=== PATIENT | female | born 1995 | race Caucasian/White ===

== ENCOUNTER 2018-05-25 10:44 | Inpatient (IN) ==
[2018-05-25] MEDS ORDERED: PROPOFOL ONE (10:48)
[2018-05-25] MEDS ORDERED: Propofol 1000 mg/100 ml Inj 1,000 MG/100 ML BOTTLE ONE (10:50)
[2018-05-25] MEDS ORDERED: Diphtheria/Tetanus/Pertussis Vaccine Inj 0.5 ML Syringe IM ONE (10:52)
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
[2018-05-25] MEDS ORDERED: Post-op Orders (for Pharmacy) OTHER ONE (11:12)
[2018-05-25] MEDS ORDERED: Bisacodyl 10 MG Supp RECTAL PRN (11:12)
[2018-05-25] MEDS ORDERED: Naloxone Inj 0.4 MG/ML Vial IV.PUSH PRN (11:12)
[2018-05-25 11:15] LABS: Baso % (Auto) 0.3 % (0.0-2.0); Eos # (Auto) 0.2 th/mm3 (0.0-0.4); Eos % (Auto) 1.9 % (0.0-4.0); Hematocrit 38.6 % (35.0-46.0); Lymph # (Auto) 3.1 th/mm3 (1.0-4.8); Lymph % (Auto) 36.1 % (9.0-44.0); Mean Corpuscular HGB Conc 33.6 % (32.0-36.0); Mean Corpuscular Hemoglobin 27.2 pg (27.0-34.0); Mean Corpuscular Volume 81.1 fL (80.0-100.0); Mean Platelet Volume 7.3 fL (7.0-11.0); Mono # (Auto) 0.5 th/mm3 (0.0-0.9); Mono % (Auto) 6.3 % (0.0-8.0); Neut # (Auto) 4.7 th/mm3 (1.8-7.7); Neut % (Auto) 55.4 % (16.0-70.0); Platelet Count 268 th/mm3 (150-450); Red Blood Count 4.76 mil/mm3 (4.00-5.30); Red Cell Distribution Width 13.2 % (11.6-17.2); White Blood Count 8.5 th/mm3 (4.0-11.0)
[2018-05-25 11:25] LABS: Activated Partial Thrombo Time 24.7 sec (23.4-31.7); Prothrombin Time 10.2 sec (9.8-11.6)
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
[2018-05-25 13:04] LABS: ABG Base Excess -4.8 mmol/L (-2-2); ABG PCO2 34 mmHg (38-42); ABG PO2 330 mmHg (61-120)
[2018-05-25] MEDS: fentaNYL 10 mcg/mL Premix Drip 2,500 MCG/250 ML BAG IV.SIG PRN (14:00)
[2018-05-25] MEDS: Propofol 1000 mg/100 ml Inj 1,000 MG/100 ML BOTTLE IV.CONT PRN ×3 (14:00→21:30)
[2018-05-25] MEDS: Sod Chloride 0.9% Inj 1,000 ML IV.CONT SCH ×2 (14:00→21:19)
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
[2018-05-25] MEDS: Oral Hygiene Kit OROPHARYNG SCH (15:18)
--- NOTE | 2018-05-25 15:24 | P.CONNS ---
History of Present Illness Service: neurosurgery Consult date: 05/25/18 Requesting Physician: Maira Thomas Reason for Consult: Trauma alert Primary Care Provider: UNKNOWN Chief Complaint: Altered mental status after TBI History of Present Illness: This is a 23 year old female brought as trauma alert with initial GCS of 3, reported on scene. No seizure activity reported. No togue bitting. no incontinence of stool or urine. She was intubated by EMS. On presentation t the trauma bay she had spontaneous movement of her extremities, but not following commands with GCS 7. She appears to have a symmetrical examination. CT of the brain showed a small occipital hemorrhage. Neurosurgery consultation was requested Family history is unobtainable due to her neurological condition Review of Systems unobtainable due to endotracheal tube, unobtainable due to mental condition PMFSH - Medical / Surgical Hx Neg / Unobtainable Medical Problems Denied: Unable to Obtain - Medical History Medical History: Medical History (Last Reviewed 05/28/18 @ 16:47 by Adin Connolly MD) Hypothyroidism Medications and Allergies Active Medications: Active Medications Al Hydroxide/Mg Hydroxide (Milk Of [employer] Liq) 30 ml PO Q12H PRN PRN Reason: Mild Constipation Albuterol (Duoneb Neb (Prn)) 1 ampul NEB Q2HR NEB PRN PRN Reason: SHORTNESS OF BREATH Albuterol (Duoneb Neb (Eliud)) 1 ampul NEB Q4HR NEB ELIUD Bisacodyl (Dulcolax Supp) 10 mg RECTAL DAILY PRN PRN Reason: SEVERE CONSITIPATION Chlorhexidine Gluconate (Peridex 0.12% Oral Kit) 15 ml OROPHARYNG BID@0800, 2000 ELIUD Sodium Chloride (Ns Inj) 1,000 mls @ 100 mls/hr IV.CONT .Q10H ELIUD Last Admin: 05/25/18 14:00 Dose: 100 mls/hr Propofol (Diprivan 1000 Mg/100 Ml Inj) 1,000 mg in 100 mls @ 2.421 mls/hr IV.CONT TITRATE PRN; Protocol PRN Reason: Per Protocol Last Admin: 05/25/18 14:00 Dose: 30 mcg/kg/min, 14.53 mls/hr Fentanyl (Fentanyl 10 Mcg/Ml Premix Drip) 2,500 mcg in 250 mls @ 5 mls/hr IV.SIG TITRATE PRN; Protocol PRN Reason: Per Protocol Last Admin: 05/25/18 14:00 Dose: 150 mcg/hr, 15 mls/hr Lactulose (Lactulose Liq) 30 ml PO DAILY PRN PRN Reason: SEVERE CONSITIPATION Miscellaneous Medication () 1 each OROPHARYNG 0000,0400,1200,1600 ELIUD Last Admin: 05/25/18 15:18 Dose: 1 each Naloxone HCl (Narcan Inj) 0.4 mg IV.PUSH UNSCH PRN PRN Reason: SEE LABEL COMMENTS Ondansetron HCl (Zofran Inj) 4 mg IV.PUSH Q6H PRN PRN Reason: NAUSEA OR VOMITING Pantoprazole Sodium (Protonix Inj) 40 mg IV.PUSH Q24H ELIUD Senna/Docusate Sodium (Taylor-Colace) 1 tab PO BID ELIUD Sennosides (Senokot) 17.2 mg PO Q12H PRN PRN Reason: Moderate Constipation Allergies Allergy/AdvReac Type Severity Reaction Status Date / Time No Known Allergies Allergy Verified 05/25/18 16:21 Home Medications Medication Instructions Recorded Confirmed Type drospirenone-ethinyl estradiol 1 tab PO DAILY 05/25/18 05/25/18 History [Bonyvi (28)] levothyroxine [Synthroid] 112 mcg PO DAILY 05/25/18 05/25/18 History Exam Vital signs: Vital Signs 05/25/18 11:32 05/25/18 11:50 Respiratory Rate 14 Pulse Oximetry 100 100 Intake & Output 05/24/18 05/25/18 05/25/18 18:59 06:59 18:59 Weight 80.7 kg Other: Weight On Admission 80.7 kg Narrative: The patient is intubated and sedated. Localizes to painful stimuli with all 4 extremities. GCS 7 Cranial Nerves: Pupils equal, 3 mm round, reactive to light. Eyes appear conjugated. There was no nystagmus, no papilledema. Face musculature appeared symmetrical at rest. Face sensation, olfaction, and hearing cannot be adequately assessed due to the patient's neurological condition. The patient has a corneal reflex. The patient has a gag reflex. The sternocleidomastoid and trapezius were symmetrical. Cervical Spine: The patient's neck is soft, supple, without nuchal rigidity. Motor: She moves purposefully all 4 extremities, left upper extremity splinted. Full examination limited due to her orthopedic injuries Reflexes: Deep tendon reflexes are 2 in the right biceps, triceps, and brachioradialis in the upper extremities. In the lower extremities, the patellar and ankles are 2+, bilaterally. There is a bilateral plantar flexion response. There is no clonus Sensory: On examination there there is response to painful stimuli, localizing with both upper and lower extremities. Cerebellar: Examination cannot be adequately assessed due to the patient's neurological condition. Lungs: clear Heart: Regular rhythm and rate Skin: warm and dry Results - Laboratory Findings CBC and BMP: 05/28/18 03:37 05/28/18 03:37 Abnormal lab findings: Abnormal Labs 05/25/18 05/25/18 10:50 12:47 ABG pH 7.37 L ABG pCO2 34 L ABG pO2 330 H ABG HCO3 20 L ABG Base Excess -4.8 L POC Glucose 133 H Assessment and Plan - Plan I have reviewed the clinical and radiological findings Chest X-Ray 05/25/18 10:45 CONCLUSION: No acute abnormality is seen. The ET tube is in good position. Pelvis X-Ray 05/25/18 10:45 CONCLUSION: Negative AP pelvis. Abdomen/Pelvis CT 05/25/18 10:49 CONCLUSION: No acute injury is identified within the abdomen or pelvis. Cervical Spine CT 05/25/18 10:49 CONCLUSION: Negative cervical spine CT examination. Chest CT 05/25/18 10:49 CONCLUSION: 1. No acute injury is identified within the chest. 2. Please refer to abdomen and pelvis CT report for description of the subdiaphragmatic findings. Head CT 05/25/18 10:49 CONCLUSION: Small 0.3 cm hyperdense focus seen in the left occipital region which could potentially represent small focal hemorrhage. No other possible areas of hemorrhage are seen. . Humerus X-Ray 05/25/18 10:49 CONCLUSION: Mid left humeral shaft fracture. Neuro: TBI, GCS 7. Although she has a very small hemorrhage without mass effect , she does not follow commands, and her neurological examination warrants placement of ICP monitor. Neuro checks in a serial fashion. She will be managed according to the recommendations of the [place] [employer]. Placement of ICP monitor is indicated. I discussed with her mother the step by step details, indcations, alternatives, potential complications Pulmonary: aggressive pulmonary toilette, nasotracheal suction, and breathing treatments with nebulizers. Upper extremity fracture. Will go to the OR for ORIF Daily PT and OT Renal: Continue to monitor closely urine output, BUN and creatinine Endocrine: Continue to Monitor serial Acu checks and SSI as needed in detail ID continue to monitor for signs of infection Continue Protonix for stress ulcer prophylaxis Continue Darion hose and SCD's for DVT prophylaxis Further recommendations will be provided depending on the patient's clinical evaluation and follow up studies. Discussed with dr House and Dr Meyer
--- NOTE | 2018-05-25 15:28 | P.OP ---
Preoperative Diagnosis: Severe traumatic brain injury Postoperative Diagnosis: Severe traumatic brain injury Date of procedure: 06/14/18 Procedure: Right frontal bur hole with placement of an intracranial pressure monitor. Anesthesia: local Surgeon: Adin Connolly MD Human Resources Executive: KHUSHI Pathology: none sent Operation and Findings: INDICATIONS FOR THE PROCEDURE The patient is an adult female who was brought to [facility] as a trauma alert with a severe traumatic brain injury She had a GCS of 3. CT of the brain showed an area of intracranial hemorrhage. Placement of ICP monitor was indicated as recommended by the Tra[employer] of [place] [employer] DETAILS OF THE SURGICAL PROCEDURE The right frontal area was shaved, prepped and draped in the usual sterile fashion. An entry point was selected behind the hairline, approximately 30 mm lateral to the midline. The incision was infiltrated with 1% lidocaine with epinephrine 1:100,000 dilution. A small incision was made with a 15 blade down to the level of the periosteum. Using a twist drill a antoni hole was made. The dura was opened with a blunt stylet, and a Lisa bolt was secured to the bone. A fiberoptic transducer was calibrated according to the information security engineer's instructions, and advanced into the parenchyma of the frontal lobe through the bolt. An intracranial pressure of 5 mmHg was achieved with a good waveform. A Betadine sterile dressing was applied. The patient tolerated the procedure well. There were no intraoperative complications. Blood loss was minimal.
[2018-05-25] MEDS: Pantoprazole Inj 40 MG Vial IV.PUSH SCH (15:37)
[2018-05-25] MEDS: Chlorhexidine 0.12% Oral Kit 15 ML UDC OROPHARYNG SCH (19:53)
[2018-05-25] MEDS: Senna/Docusate Sodium 8.6/50 MG Tablet PO SCH (20:30)
[2018-05-26] MEDS: fentaNYL 10 mcg/mL Premix Drip 2,500 MCG/250 ML BAG IV.SIG PRN ×2 (01:50→19:50)
[2018-05-26] MEDS: Propofol 1000 mg/100 ml Inj 1,000 MG/100 ML BOTTLE IV.CONT PRN ×4 (02:58→19:47)
[2018-05-26] MEDS: Oral Hygiene Kit OROPHARYNG SCH ×4 (03:55→16:16)
--- NOTE | 2018-05-26 04:17 | XR ---
EXAM DATE: 05/26/2018 4:10 AM EST AGE/SEX: 23 years / Female INDICATIONS: Follow up trauma alert. CLINICAL DATA: This is the patient's subsequent encounter. Patient reports that signs and symptoms h ave been present for 2 days and indicates a pain score of Nonresponsive. MEDICAL/SURGICAL HISTORY: Non-responsive. Non-responsive. COMPARISON: C, CHEST 1V SINGLE AP, 05/25/2018. . FINDINGS: Endotracheal tube tip at the inferior margin the clavicles. Enteric tube courses beneath the diaphrag m. The lungs are clear. The osseous structures are intact. CONCLUSION: Negative examination. Electronically signed by: George Goncalves MD 05/26/2018 4:15 AM EST
[2018-05-26 06:06] LABS: ABG Base Excess -2.7 mmol/L (-2-2); ABG PCO2 30 mmHg (38-42); ABG PO2 205 mmHg (61-120)
[2018-05-26] MEDS ORDERED: Sod Chloride 0.9% Inj 1,000 ML IV.SIG ONE ×2 (06:30→13:04)
[2018-05-26 08:36] LABS: Baso % (Auto) 0.2 % (0.0-2.0); Eos % (Auto) 0.2 % (0.0-4.0); Hematocrit 28.9 % (35.0-46.0); Hemoglobin 10.1 gm/dL (11.6-15.3); Lymph # (Auto) 1.4 th/mm3 (1.0-4.8); Mean Corpuscular Hemoglobin 27.7 pg (27.0-34.0); Mean Platelet Volume 7.8 fL (7.0-11.0); Mono # (Auto) 0.7 th/mm3 (0.0-0.9); Mono % (Auto) 6.4 % (0.0-8.0); Neut # (Auto) 9.1 th/mm3 (1.8-7.7); Neut % (Auto) 81.2 % (16.0-70.0); Platelet Count 195 th/mm3 (150-450); Red Blood Count 3.66 mil/mm3 (4.00-5.30); Red Cell Distribution Width 13.2 % (11.6-17.2); White Blood Count 11.3 th/mm3 (4.0-11.0)
[2018-05-26] MEDS: Senna/Docusate Sodium 8.6/50 MG Tablet PO SCH ×2 (08:52→22:21)
[2018-05-26] MEDS: Chlorhexidine 0.12% Oral Kit 15 ML UDC OROPHARYNG SCH ×2 (08:52→21:43)
[2018-05-26] MEDS: Sod Chloride 0.9% Inj 1,000 ML IV.CONT SCH ×2 (08:52→20:05)
[2018-05-26] MEDS: Levothyroxine 112 MCG Tablet PO SCH (08:52)
[2018-05-26 09:12] LABS: Anion Gap 9 meq/L (5-15); Blood Urea Nitrogen 6 mg/dL (7-18); Calcium 7.3 mg/dL (8.5-10.1); Carbon Dioxide 21.1 meq/L (21.0-32.0); Chloride 113 meq/L (98-107); Glomerular Filtration Rate Greater Than 89 mL/min (>89); Glucose,Random 110 mg/dL (74-106); Sodium 143 meq/L (136-145)
[2018-05-26 09:20] LABS: Albumin 2.6 g/dL (3.4-5.0); Calcium-Albumin Corrected 8.4 mg/dL (8.5-10.1)
[2018-05-26] MEDS ORDERED: Magnesium Sulfate Inj 2 GM in Sodium Chlor 0.9% Inj 96 ML IV.SIG PRN (09:22)
[2018-05-26] MEDS ORDERED: Magnesium Oxide 400 MG Tablet PO PRN (09:22)
[2018-05-26] MEDS ORDERED: Magnesium Sulfate Inj 4 GM in Sodium Chlor 0.9% Inj 92 ML IV.SIG PRN (09:22)
[2018-05-26] MEDS ORDERED: Sodium Phosphate Inj 30 MMOL in Sodium Chlor 0.9% Inj 250 ML IV.SIG PRN (09:22)
[2018-05-26] MEDS ORDERED: Potassium Phosphate Inj 30 MMOL in Sodium Chlor 0.9% Inj 250 ML IV.SIG PRN (09:22)
[2018-05-26] MEDS ORDERED: Potassium Phosphate 500 MG Soluble Tablet PO PRN ×2 (09:22)
[2018-05-26] MEDS ORDERED: Potassium Chloride 25 MEQ Effervescent Tablet PO PRN (09:22)
[2018-05-26] MEDS ORDERED: Potassium Chlor 40 mEq Premix 40 MEQ/100 ML PIGGYBACK IV.SIG PRN ×2 (09:22)
--- NOTE | 2018-05-26 10:17 | XR ---
EXAM DATE: 05/26/2018 10:07 AM EST AGE/SEX: 23 years / Female INDICATIONS: Trauma. Left hand swollen and abrasion to posterior hand between 1st and 2nd metacarpa ls. CLINICAL DATA: This is the patient's initial encounter. Patient reports that signs and symptoms have been present for 2 days and indicates a pain score of Nonresponsive. MEDICAL/SURGICAL HISTORY: Non-responsive. Non-responsive. COMPARISON: No prior exams available for comparison. FINDINGS: Bony structures are intact and in normal alignment. Osseous density is normal. Soft tissues are unre markable. No radiopaque foreign bodies seen. CONCLUSION: Generalized soft tissue swelling, negative for displaced fracture Electronically signed by: Wally Reis MD 05/26/2018 10:16 AM EST
--- NOTE | 2018-05-26 11:29 | P.PNNS ---
Subjective Interval history: ICPs stable overnight, intubated and well sedated Physical Exam Vital signs: Vital Signs 05/25/18 11:32 05/25/18 11:35 05/25/18 11:50 Temperature Pulse Rate 79 Respiratory Rate 14 14 Blood Pressure Pulse Oximetry 100 100 100 05/25/18 12:00 05/25/18 12:22 05/25/18 12:30 Temperature 97.0 F L 97.3 F L Pulse Rate 99 H 82 73 Respiratory Rate 14 14 16 Blood Pressure 145/70 H 165/63 H Pulse Oximetry 99 100 100 05/25/18 12:40 05/25/18 12:45 05/25/18 12:49 Temperature 94.3 F L 97.5 F L Pulse Rate 76 67 67 Respiratory Rate 19 15 14 Blood Pressure 157/56 H 113/56 L 113/58 L Pulse Oximetry 98 100 100 05/25/18 12:54 05/25/18 12:59 05/25/18 13:00 Temperature 97.9 F 97.9 F 97.9 F Pulse Rate 66 69 68 Respiratory Rate 15 14 14 Blood Pressure 112/56 L 102/52 L Pulse Oximetry 100 100 100 05/25/18 13:02 05/25/18 13:18 05/25/18 13:33 Temperature 97.9 F 97.9 F 97.7 F Pulse Rate 69 72 73 Respiratory Rate 14 14 14 Blood Pressure 113/54 L 105/53 L 102/50 L Pulse Oximetry 100 100 100 05/25/18 13:48 05/25/18 14:00 05/25/18 14:03 Temperature 97.9 F 98.1 F 98.1 F Pulse Rate 72 81 81 Respiratory Rate 14 14 14 Blood Pressure 103/54 L 99/50 L Pulse Oximetry 100 100 100 05/25/18 14:18 05/25/18 14:33 05/25/18 14:48 Temperature 98.1 F 97.9 F 97.7 F Pulse Rate 80 78 67 Respiratory Rate 14 14 14 Blood Pressure 93/48 L 91/51 L 98/53 L Pulse Oximetry 100 100 100 05/25/18 15:00 05/25/18 15:03 05/25/18 15:18 Temperature 97.9 F 97.9 F 98.1 F Pulse Rate 72 71 70 Respiratory Rate 14 14 14 Blood Pressure 100/55 L 99/55 L Pulse Oximetry 100 100 100 05/25/18 15:33 05/25/18 15:34 05/25/18 15:48 Temperature 98.1 F 98.1 F Pulse Rate 66 77 74 Respiratory Rate 14 14 14 Blood Pressure 111/58 L 107/58 L Pulse Oximetry 100 100 100 05/25/18 16:00 05/25/18 16:03 05/25/18 16:18 Temperature 98.2 F 98.2 F 98.2 F Pulse Rate 73 73 71 Respiratory Rate 14 14 14 Blood Pressure 108/57 L 109/57 L Pulse Oximetry 100 100 100 05/25/18 16:33 05/25/18 16:48 05/25/18 17:00 Temperature 98.4 F 98.2 F 98.2 F Pulse Rate 71 67 69 Respiratory Rate 14 14 14 Blood Pressure 109/55 L 113/56 L Pulse Oximetry 100 100 100 05/25/18 17:03 05/25/18 17:18 05/25/18 17:33 Temperature 98.2 F 98.4 F 98.4 F Pulse Rate 69 70 71 Respiratory Rate 14 14 14 Blood Pressure 108/55 L 107/56 L 108/56 L Pulse Oximetry 100 100 100 05/25/18 17:48 05/25/18 18:00 05/25/18 18:03 Temperature 98.4 F 98.6 F 98.6 F Pulse Rate 73 72 74 Respiratory Rate 14 14 14 Blood Pressure 106/53 L 109/54 L Pulse Oximetry 100 100 100 05/25/18 18:18 05/25/18 18:33 05/25/18 18:48 Temperature Pulse Rate 73 73 72 Respiratory Rate 14 14 14 Blood Pressure 104/56 L 109/55 L Pulse Oximetry 100 100 100 05/25/18 19:00 05/25/18 19:03 05/25/18 19:18 Temperature Pulse Rate 74 74 74 Respiratory Rate 14 14 14 Blood Pressure 103/55 L 104/57 L Pulse Oximetry 100 100 100 05/25/18 19:33 05/25/18 19:41 05/25/18 19:48 Temperature Pulse Rate 73 73 74 Respiratory Rate 14 14 14 Blood Pressure 114/56 L 117/55 L Pulse Oximetry 100 100 100 05/25/18 20:00 05/25/18 20:03 05/25/18 20:18 Temperature 97.6 F Pulse Rate 85 88 87 Respiratory Rate 23 23 23 Blood Pressure 110/59 L 109/56 L Pulse Oximetry 100 100 100 05/25/18 20:33 05/25/18 20:48 05/25/18 21:00 Temperature Pulse Rate 83 85 85 Respiratory Rate 14 14 14 Blood Pressure 107/52 L 109/53 L 109/55 L Pulse Oximetry 100 100 100 05/25/18 21:03 05/25/18 21:18 05/25/18 21:33 Temperature Pulse Rate 85 85 83 Respiratory Rate 14 14 14 Blood Pressure 109/55 L 109/56 L 108/53 L Pulse Oximetry 100 100 100 05/25/18 21:48 05/25/18 22:00 05/25/18 22:03 Temperature Pulse Rate 82 82 84 Respiratory Rate 14 14 14 Blood Pressure 108/52 L 110/53 L Pulse Oximetry 100 100 100 05/25/18 22:18 05/25/18 22:33 05/25/18 22:48 Temperature Pulse Rate 87 85 86 Respiratory Rate 15 14 14 Blood Pressure 110/53 L 113/55 L 104/53 L Pulse Oximetry 100 100 100 05/25/18 23:00 05/25/18 23:03 05/25/18 23:18 Temperature Pulse Rate 85 85 85 Respiratory Rate 14 14 14 Blood Pressure 107/52 L 108/52 L Pulse Oximetry 100 100 100 05/25/18 23:24 18 23:33 05/25/18 23:48 Temperature Pulse Rate 82 95 H 93 H Respiratory Rate 14 14 14 Blood Pressure 106/54 L 106/54 L Pulse Oximetry 100 100 100 05/26/18 00:00 05/26/18 00:03 05/26/18 00:18 Temperature 99.9 F H Pulse Rate 92 H 91 H 84 Respiratory Rate 14 14 14 Blood Pressure 105/53 L 105/53 L Pulse Oximetry 100 100 100 05/26/18 00:33 05/26/18 00:48 05/26/18 01:00 Temperature Pulse Rate 89 89 88 Respiratory Rate 14 14 14 Blood Pressure 102/52 L 94/53 L Pulse Oximetry 100 100 100 05/26/18 01:03 05/26/18 01:18 05/26/18 01:33 Temperature Pulse Rate 90 89 87 Respiratory Rate 14 14 14 Blood Pressure 98/53 L 99/53 L 99/53 L Pulse Oximetry 100 100 100 05/26/18 01:48 05/26/18 02:00 05/26/18 02:03 Temperature Pulse Rate 85 85 85 Respiratory Rate 14 14 14 Blood Pressure 100/54 L 109/59 L Pulse Oximetry 100 100 100 05/26/18 02:18 05/26/18 02:33 05/26/18 02:48 Temperature Pulse Rate 85 84 83 Respiratory Rate 14 14 14 Blood Pressure 103/53 L 98/50 L 99/51 L Pulse Oximetry 100 100 100 05/26/18 02:54 05/26/18 03:00 05/26/18 03:03 Temperature Pulse Rate 84 83 83 Respiratory Rate 14 14 14 Blood Pressure 98/54 L 99/52 L 101/59 L Pulse Oximetry 100 100 100 05/26/18 03:18 05/26/18 03:24 05/26/18 03:33 Temperature Pulse Rate 82 84 90 Respiratory Rate 14 14 14 Blood Pressure 99/52 L 110/63 Pulse Oximetry 100 100 100 05/26/18 03:48 05/26/18 04:00 05/26/18 04:03 Temperature 99.1 F Pulse Rate 97 H 98 H 97 H Respiratory Rate 14 14 14 Blood Pressure 117/61 118/59 L Pulse Oximetry 100 100 100 05/26/18 04:18 05/26/18 04:33 05/26/18 04:48 Temperature Pulse Rate 96 H 93 H 91 H Respiratory Rate 14 14 14 Blood Pressure 113/58 L 112/55 L 110/50 L Pulse Oximetry 100 100 100 05/26/18 05:00 05/26/18 05:03 05/26/18 05:18 Temperature 99.1 F 99.0 F Pulse Rate 91 H 90 92 H Respiratory Rate 14 14 14 Blood Pressure 106/55 L 106/52 L Pulse Oximetry 100 100 100 05/26/18 05:33 05/26/18 05:51 05/26/18 06:00 Temperature Pulse Rate 89 85 84 Respiratory Rate 14 14 14 Blood Pressure 101/50 L 99/54 L Pulse Oximetry 100 100 100 05/26/18 06:18 05/26/18 06:19 05/26/18 06:30 Temperature 97.7 F 97.7 F Pulse Rate 83 81 Respiratory Rate 12 12 12 Blood Pressure 100/55 L 100/55 L Pulse Oximetry 100 100 100 05/26/18 06:48 05/26/18 07:00 05/26/18 07:15 Temperature 97.5 F L 97.5 F L 97.5 F L Pulse Rate 81 80 80 Respiratory Rate 12 12 12 Blood Pressure 100/55 L 99/53 L 94/53 L Pulse Oximetry 100 100 100 05/26/18 07:26 05/26/18 07:30 05/26/18 07:45 Temperature 95.5 F L 93.4 F L Pulse Rate 75 81 87 Respiratory Rate 12 12 12 Blood Pressure 99/54 L 99/51 L Pulse Oximetry 100 100 100 05/26/18 08:00 05/26/18 08:15 05/26/18 09:00 Temperature 98.3 F 98.8 F Pulse Rate 90 84 88 Respiratory Rate 10 L 20 Blood Pressure 106/56 L 108/51 L Pulse Oximetry 100 100 05/26/18 09:56 05/26/18 10:30 05/26/18 11:09 Temperature 99.1 F Pulse Rate 88 94 H Respiratory Rate 12 12 12 Blood Pressure 108/54 L Pulse Oximetry 100 100 Intake & Output 05/25/18 05/26/18 05/26/18 18:59 06:59 18:59 Intake Total 200 / 200 1550 / 1550 1000 / 1000 Output Total 425 / 425 400 / 400 Balance -225 / -225 1150 / 1150 1000 / 1000 Weight 80.7 kg 85.5 kg Intake: IV 200 / 200 1550 / 1550 1000 / 1000 Diprivan 1000 mg/100 ml Inj 1, 100 / 100 000 mg In 100 ml @ 0 mls/hr . ROUTE .STK-MED ONE Rx#:[id number] Diprivan 1000 mg/100 ml Inj 1, 100 / 100 300 / 300 000 mg In 100 ml @ 5 MCG/KG/MIN 2.421 mls/hr IV.CONT TITRATE PRN Rx#:[id number] NS Inj 1,000 ML @ 100 mls/hr IV 1000 / 1000 1000 / 1000 .CONT .Q10H KELSEY Rx#:[id number] fentaNYL 10 mcg/mL Premix Drip 250 / 250 2,500 mcg In 250 ml @ 50 MCG/HR 5 mls/hr IV.SIG TITRATE PRN Rx #:[id number] Oral 0 / 0 Output: Urine Amount (Catheter) 225 / 225 300 / 300 Indwelling Temp Sensing 225 / 225 300 / 300 Catheter Gastric Drainage 200 / 200 100 / 100 Orogastric Tube 200 / 200 100 / 100 Other: Weight On Admission 80.7 kg Narrative: intubated, sedated bolt monitor in place, ICPs = 4 pupils equal no response to ext to pain - Urinary Catheter Management Indwelling Temp Sensing Catheter Cath placed during this visit: yes Reason for continuing: Hourly intake/output Insertion date: 05/25/18 Insertion time: 14:00 Assessment and Plan - Plan 23 y/o female TBI, s/p placement of ICP monitor 05/25/[address] 05/25/18 10:49 CONCLUSION: Small 0.3 cm hyperdense focus seen in the left occipital region which could potentially represent small focal hemorrhage. No other possible areas of hemorrhage are seen. Plan: cont ICP monitoring cont critical care per trauma neuro checks
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
[2018-05-26] MEDS: Potassium Chlor 20 mEq Premix 20 MEQ/100 ML PIGGYBACK IV.SIG PRN ×4 (12:31→21:56)
[2018-05-26] MEDS: Pantoprazole Inj 40 MG Vial IV.PUSH SCH (12:41)
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
[2018-05-27] MEDS: Oral Hygiene Kit OROPHARYNG SCH ×4 (00:05→17:12)
[2018-05-27] MEDS: Propofol 1000 mg/100 ml Inj 1,000 MG/100 ML BOTTLE IV.CONT PRN ×3 (01:58→20:15)
[2018-05-27 04:36] LABS: Hematocrit 29.8 % (35.0-46.0); Hemoglobin 9.7 gm/dL (11.6-15.3); Mean Corpuscular HGB Conc 32.4 % (32.0-36.0); Mean Corpuscular Hemoglobin 26.7 pg (27.0-34.0); Mean Corpuscular Volume 82.3 fL (80.0-100.0); Mean Platelet Volume 7.6 fL (7.0-11.0); Platelet Count 168 th/mm3 (150-450); Red Blood Count 3.62 mil/mm3 (4.00-5.30); Red Cell Distribution Width 13.1 % (11.6-17.2); White Blood Count 18.4 th/mm3 (4.0-11.0)
[2018-05-27 05:05] LABS: Anion Gap 10 meq/L (5-15); Blood Urea Nitrogen 2 mg/dL (7-18); Calcium 7.6 mg/dL (8.5-10.1); Carbon Dioxide 18.7 meq/L (21.0-32.0); Chloride 112 meq/L (98-107); Glomerular Filtration Rate Greater Than 89 mL/min (>89); Glucose,Random 121 mg/dL (74-106); Potassium 4.1 meq/L (3.5-5.1); Sodium 141 meq/L (136-145)
[2018-05-27 05:19] LABS: Lymphocytes 5 % (9-44); Metamyelocytes 1 % (0-1); Monocytes 2 % (0-8); Platelet Estimate Normal (Normal); Platelet Morphology Normal (Normal); RBC Morphology Normal (Normal)
[2018-05-27] MEDS: Levothyroxine 112 MCG Tablet PO SCH (06:02)
[2018-05-27] MEDS ORDERED: Sod Chloride 0.9% Inj 1,000 ML IV.SIG ONE (09:17)
--- NOTE | 2018-05-27 09:38 | XR ---
EXAM DATE: 05/27/2018 9:34 AM EST AGE/SEX: 23 years / Female INDICATIONS: Fever. CLINICAL DATA: This is the patient's subsequent encounter. Patient reports that signs and symptoms h ave been present for 3 days and indicates a pain score of Nonresponsive. MEDICAL/SURGICAL HISTORY: None. None. [place] [facility] [place]. . FINDINGS: Decreased aeration of the lungs is noted. There is increasing opacity in the perihilar regions. There is no evidence of peripheral airspace disease or effusions. Endotracheal and nasogastric tubes remain in good position. CONCLUSION: Decreased lung aeration with perihilar opacity No evidence of peripheral airspace disease. Electronically signed by: Loi Colon MD 05/27/2018 9:36 AM EST
[2018-05-27 10:02] LABS: ABG Base Excess -4.1 mmol/L (-2-2); ABG PCO2 33 mmHg (38-42); ABG PO2 89 mmHg (61-120)
[2018-05-27] MEDS: Sod Chloride 0.9% Inj 1,000 ML IV.CONT SCH ×2 (11:01→15:20)
[2018-05-27] MEDS: Senna/Docusate Sodium 8.6/50 MG Tablet PO SCH ×2 (11:02→20:40)
[2018-05-27] MEDS: Chlorhexidine 0.12% Oral Kit 15 ML UDC OROPHARYNG SCH ×2 (11:02→20:42)
[2018-05-27] MEDS ORDERED: Vancomycin Consult Pharmacy OTHER PRN (11:41)
[2018-05-27] MEDS ORDERED: Vancomycin Inj 1,000 MG in Sodium Chlor 0.9% Inj 250 ML IV.SIG ONE (11:42)
[2018-05-27] MEDS: Pantoprazole Inj 40 MG Vial IV.PUSH SCH (11:53)
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
--- NOTE | 2018-05-27 13:16 | P.PNOP ---
Subjective Interval history: Patient intubated. Mother states she was cleared for surgery yesterday, but it did not happen, reason unknown. Currently patient is unstable for surgery at this time. Physical Exam Vital signs: Vital Signs 05/26/18 13:15 05/26/18 13:19 05/26/18 13:30 Temperature 101.3 F H 101.3 F H Pulse Rate 104 H 102 H Respiratory Rate 12 12 12 Blood Pressure 100/54 L 98/50 L Pulse Oximetry 100 100 100 05/26/18 13:45 05/26/18 14:00 05/26/18 14:15 Temperature 101.1 F H 100.8 F H 100.4 F H Pulse Rate 99 H 101 H 96 H Respiratory Rate 12 12 12 Blood Pressure 98/49 L 97/49 L 93/46 L Pulse Oximetry 100 100 100 05/26/18 14:30 05/26/18 14:45 05/26/18 14:49 Temperature 100.0 F H 99.7 F H Pulse Rate 92 H 90 93 H Respiratory Rate 12 12 16 Blood Pressure 97/46 L 96/46 L Pulse Oximetry 100 100 05/26/18 15:00 05/26/18 15:15 05/26/18 15:17 Temperature 99.5 F 99.5 F 99.5 F Pulse Rate 96 H 99 H 99 H Respiratory Rate 12 12 12 Blood Pressure 88/43 L 89/51 L 88/47 L Pulse Oximetry 100 100 100 05/26/18 15:30 05/26/18 15:45 05/26/18 15:59 Temperature 99.3 F 99.3 F Pulse Rate 101 H 99 H Respiratory Rate 13 12 12 Blood Pressure 100/51 L 98/53 L Pulse Oximetry 100 100 100 05/26/18 16:00 05/26/18 16:09 05/26/18 16:15 Temperature 99.3 F 99.3 F 99.3 F Pulse Rate 100 H 107 H 101 H Respiratory Rate 12 19 14 Blood Pressure 97/51 L 103/51 L 99/52 L Pulse Oximetry 100 100 100 05/26/18 16:30 05/26/18 17:00 05/26/18 17:15 Temperature 99.5 F 99.3 F 99.3 F Pulse Rate 100 H 99 H 98 H Respiratory Rate 12 12 12 Blood Pressure 100/50 L 98/50 L 97/50 L Pulse Oximetry 100 100 100 05/26/18 17:30 05/26/18 17:45 05/26/18 18:00 Temperature 99.3 F 99.3 F 99.5 F Pulse Rate 98 H 98 H 99 H Respiratory Rate 12 12 12 Blood Pressure 100/53 L 99/50 L 101/53 L Pulse Oximetry 100 100 100 05/26/18 18:15 05/26/18 18:30 05/26/18 18:45 Temperature 99.5 F 100.2 F H 100.4 F H Pulse Rate 115 H 108 H 111 H Respiratory Rate 17 15 13 Blood Pressure 102/52 L 89/46 L 92/54 L Pulse Oximetry 100 100 100 05/26/18 19:00 05/26/18 19:15 05/26/18 19:30 Temperature 100.6 F H 100.6 F H Pulse Rate 110 H 111 H 109 H Respiratory Rate 13 14 13 Blood Pressure 90/55 L 94/53 L 95/52 L Pulse Oximetry 100 100 100 05/26/18 19:45 05/26/18 20:00 05/26/18 20:05 Temperature 102.4 F H Pulse Rate 110 H 118 H Respiratory Rate 13 21 16 Blood Pressure 95/53 L 116/58 L Pulse Oximetry 100 99 99 05/26/18 20:09 05/26/18 21:00 05/26/18 21:45 Temperature Pulse Rate 115 H 110 H 105 H Respiratory Rate 14 13 14 Blood Pressure 109/55 L Pulse Oximetry 98 97 05/26/18 22:00 05/26/18 23:00 05/27/18 00:00 Temperature 99.9 F H 100.2 F H Pulse Rate 104 H 106 H 104 H Respiratory Rate 13 15 13 Blood Pressure 107/51 L 114/57 L 103/55 L Pulse Oximetry 97 100 97 05/27/18 00:35 05/27/18 00:37 05/27/18 01:00 Temperature 100.4 F H Pulse Rate 105 H 112 H Respiratory Rate 13 13 15 Blood Pressure 117/57 L Pulse Oximetry 100 100 05/27/18 02:00 05/27/18 03:00 05/27/18 03:45 Temperature 100.9 F H Pulse Rate 117 H 112 H 117 H Respiratory Rate 15 14 17 Blood Pressure 115/59 L 107/53 L Pulse Oximetry 100 99 98 05/27/18 04:00 05/27/18 04:02 05/27/18 04:04 Temperature 100.8 F H Pulse Rate 114 H 114 H Respiratory Rate 14 14 12 Blood Pressure 107/53 L Pulse Oximetry 98 100 05/27/18 05:00 05/27/18 06:00 05/27/18 06:45 Temperature 102.4 F H Pulse Rate 113 H 114 H 115 H Respiratory Rate 14 13 14 Blood Pressure 109/52 L 105/55 L 109/51 L Pulse Oximetry 100 100 100 05/27/18 07:00 05/27/18 07:15 05/27/18 07:30 Temperature 102.6 F H 102.6 F H 102.7 F H Pulse Rate 115 H 117 H 117 H Respiratory Rate 14 14 14 Blood Pressure 108/54 L 112/56 L 108/51 L Pulse Oximetry 100 100 100 05/27/18 07:45 05/27/18 08:00 05/27/18 08:07 Temperature 102.9 F H 103.1 F H Pulse Rate 117 H 133 H Respiratory Rate 14 21 12 Blood Pressure 109/55 L 119/54 L Pulse Oximetry 100 97 93 L 05/27/18 08:15 05/27/18 08:30 05/27/18 08:45 Temperature 103.1 F H 103.5 F H 103.3 F H Pulse Rate 123 H 133 H 121 H Respiratory Rate 18 23 17 Blood Pressure 107/53 L 106/54 L 102/50 L Pulse Oximetry 96 92 L 92 L 05/27/18 09:00 05/27/18 09:15 05/27/18 09:30 Temperature 102.7 F H 102.2 F H 101.8 F H Pulse Rate 117 H 116 H 113 H Respiratory Rate 14 15 14 Blood Pressure 103/51 L 100/53 L 99/51 L Pulse Oximetry 92 L 93 L 94 L 05/27/18 09:45 05/27/18 10:00 05/27/18 10:15 Temperature 101.3 F H 100.9 F H 100.8 F H Pulse Rate 117 H 116 H 118 H Respiratory Rate 16 17 17 Blood Pressure 102/50 L 120/49 L 108/54 L Pulse Oximetry 95 95 95 05/27/18 10:30 05/27/18 10:45 05/27/18 10:53 Temperature 100.6 F H 100.6 F H 100.4 F H Pulse Rate 110 H 104 H 106 H Respiratory Rate 15 14 14 Blood Pressure 99/51 L 88/42 L 91/45 L Pulse Oximetry 95 96 96 05/27/18 11:00 05/27/18 11:15 05/27/18 11:30 Temperature 100.4 F H 100.4 F H 99.9 F H Pulse Rate 104 H 107 H 103 H Respiratory Rate 13 16 14 Blood Pressure 90/43 L 94/47 L 92/44 L Pulse Oximetry 96 97 93 L 05/27/18 11:45 05/27/18 12:00 05/27/18 12:23 Temperature 99.1 F 98.6 F Pulse Rate 102 H 103 H Respiratory Rate 14 13 12 Blood Pressure 96/46 L 95/47 L Pulse Oximetry 94 L 95 Intake & Output 05/26/18 05/27/18 05/27/18 18:59 06:59 18:59 Intake Total 1915 / 1915 2505 / 2505 Output Total 975 / 975 1700 / 1700 Balance 940 / 940 805 / 805 Weight 83.5 kg Intake: IV 1855 / 1855 2505 / 2505 Diprivan 1000 mg/100 ml Inj 1, 200 / 200 200 / 200 000 mg In 100 ml @ 5 MCG/KG/MIN 2.421 mls/hr IV.CONT TITRATE PRN Rx#:[id number] NS Inj 1,000 ML @ 80 mls/hr IV. 1000 / 1000 1999 / 1999 CONT .[id number] [facility] Rx#:[id number] Ofirmev Inj 1,000 mg In 100 ml 100 / 100 100 / 100 @ 400 mls/hr IV.SIG Q6H PRN Rx# :[id number] KCl 20 mEq Premix Inj 20 meq In 200 / 200 100 / 100 100 ml @ 50 mls/hr IV.SIG Q2H PRN Rx#:[id number] fentaNYL 10 mcg/mL Premix Drip 250 / 250 2,500 mcg In 250 ml @ 50 MCG/HR 5 mls/hr IV.SIG TITRATE PRN Rx #:[id number] Keppra Inj 500 MG In NS Inj 100 105 / 105 105 / 105 ML @ 400 mls/hr IV.SIG Q12H [facility] Rx#:[id number] Oral 0 / 0 Tube Irrigant 60 / 60 Output: Urine Amount (Catheter) 675 / 675 1700 / 1700 Indwelling Temp Sensing 675 / 675 1700 / 1700 Catheter Gastric Drainage 300 / 300 0 / 0 Orogastric Tube 300 / 300 0 / 0 Other: # Bowel Movements 0 Narrative: Left shoulder swelling to LUE brianne wrap in place 2+ radial pulses good capillary refills - Urinary Catheter Management Indwelling Temp Sensing Catheter Cath placed during this visit: yes Reason for continuing: Hourly intake/output Insertion date: 05/25/18 Insertion time: 14:00 Results - Labs CBC & Chem 7: 05/27/18 04:01 05/27/18 04:01 Laboratory Results - last 24 hr 05/27/18 05/27/18 05/27/18 04:01 04:01 09:46 WBC 18.4 H D RBC 3.62 L Hgb 9.7 L Hct 29.8 L MCV 82.3 MCH 26.7 L MCHC 32.4 RDW 13.1 Plt Count 168 MPV 7.6 Prelim Diff (Auto) Slide review pending WBC Differential Manual diff final Seg Neuts % (Manual) 68 Band Neuts % (Manual) 24 H Lymphocytes % (Manual) 5 L Monocytes % (Manual) 2 Metamyelocytes % (Man) 1 Abs Neuts (Manual) 17.1 H Differential Comment . Platelet Estimate Normal Platelet Morphology Normal RBC Morphology Normal Puncture Site Right radial Patient Temperature 98.6 O2 Saturation 96 ABG pH 7.40 ABG pCO2 33 L ABG pO2 89 ABG HCO3 20 L ABG O2 Content 15.1 ABG Base Excess -4.1 L ABG Methemoglobin 1.2 Fredy Test Present Hemoglobin 11.2 L Carboxyhemoglobin 1.0 O2 Delivery Device Ventilator Vent Setting Inspired O2 50 Critical Value No Sodium 141 Potassium 4.1 D Chloride 112 H Carbon Dioxide 18.7 L Anion Gap 10 BUN 2 L Creatinine 0.59 Estimated GFR Greater than 89 Random Glucose 121 H Calcium 7.6 L 05/27/18 09:51 WBC RBC Hgb Hct MCV MCH MCHC RDW Plt Count MPV Prelim Diff (Auto) WBC Differential Seg Neuts % (Manual) Band Neuts % (Manual) Lymphocytes % (Manual) Monocytes % (Manual) Metamyelocytes % (Man) Abs Neuts (Manual) Differential Comment Platelet Estimate Platelet Morphology RBC Morphology Puncture Site Left brachial Patient Temperature 98.6 O2 Saturation 85 L* ABG pH 7.40 ABG pCO2 41 ABG pO2 347 H ABG HCO3 25 ABG O2 Content 14.7 ABG Base Excess 0.5 ABG Methemoglobin 1.2 Fredy Test Present Hemoglobin 11.6 L Carboxyhemoglobin 13.6 H* O2 Delivery Device Nrb Vent Setting Inspired O2 100 Critical Value Yes Sodium Potassium Chloride Carbon Dioxide Anion Gap BUN Creatinine Estimated GFR Random Glucose Calcium - Imaging Impressions Chest X-Ray 05/27/18 09:13 CONCLUSION: Decreased lung aeration with perihilar opacity No evidence of peripheral airspace disease. Assessment and Plan - Assessment and Plan 23yo F trauma alert, intubated and sedated with small intracranial bleed and closed left humerus fracture Patient will need to be stabilized and cleared to proceed with surgical intervention for open reduction internal fixation of left.
--- NOTE | 2018-05-27 14:33 | P.PNNS ---
Subjective Interval history: HD#2, intubated, sedated Physical Exam Vital signs: Vital Signs 05/26/18 14:15 05/26/18 14:30 05/26/18 14:45 Temperature 100.4 F H 100.0 F H 99.7 F H Pulse Rate 96 H 92 H 90 Respiratory Rate 12 12 12 Blood Pressure 93/46 L 97/46 L 96/46 L Pulse Oximetry 100 100 100 05/26/18 14:49 05/26/18 15:00 05/26/18 15:15 Temperature 99.5 F 99.5 F Pulse Rate 93 H 96 H 99 H Respiratory Rate 16 12 12 Blood Pressure 88/43 L 89/51 L Pulse Oximetry 100 100 05/26/18 15:17 05/26/18 15:30 05/26/18 15:45 Temperature 99.5 F 99.3 F 99.3 F Pulse Rate 99 H 101 H 99 H Respiratory Rate 12 13 12 Blood Pressure 88/47 L 100/51 L 98/53 L Pulse Oximetry 100 100 100 05/26/18 15:59 05/26/18 16:00 05/26/18 16:09 Temperature 99.3 F 99.3 F Pulse Rate 100 H 107 H Respiratory Rate 12 12 19 Blood Pressure 97/51 L 103/51 L Pulse Oximetry 100 100 100 05/26/18 16:15 05/26/18 16:30 05/26/18 17:00 Temperature 99.3 F 99.5 F 99.3 F Pulse Rate 101 H 100 H 99 H Respiratory Rate 14 12 12 Blood Pressure 99/52 L 100/50 L 98/50 L Pulse Oximetry 100 100 100 05/26/18 17:15 05/26/18 17:30 05/26/18 17:45 Temperature 99.3 F 99.3 F 99.3 F Pulse Rate 98 H 98 H 98 H Respiratory Rate 12 12 12 Blood Pressure 97/50 L 100/53 L 99/50 L Pulse Oximetry 100 100 100 05/26/18 18:00 05/26/18 18:15 05/26/18 18:30 Temperature 99.5 F 99.5 F 100.2 F H Pulse Rate 99 H 115 H 108 H Respiratory Rate 12 17 15 Blood Pressure 101/53 L 102/52 L 89/46 L Pulse Oximetry 100 100 100 05/26/18 18:45 05/26/18 19:00 05/26/18 19:15 Temperature 100.4 F H 100.6 F H 100.6 F H Pulse Rate 111 H 110 H 111 H Respiratory Rate 13 13 14 Blood Pressure 92/54 L 90/55 L 94/53 L Pulse Oximetry 100 100 100 05/26/18 19:30 05/26/18 19:45 05/26/18 20:00 Temperature 102.4 F H Pulse Rate 109 H 110 H 118 H Respiratory Rate 13 13 21 Blood Pressure 95/52 L 95/53 L 116/58 L Pulse Oximetry 100 100 99 05/26/18 20:05 05/26/18 20:09 05/26/18 21:00 Temperature Pulse Rate 115 H 110 H Respiratory Rate 16 14 13 Blood Pressure 109/55 L Pulse Oximetry 99 98 05/26/18 21:45 05/26/18 22:00 05/26/18 23:00 Temperature 99.9 F H Pulse Rate 105 H 104 H 106 H Respiratory Rate 14 13 15 Blood Pressure 107/51 L 114/57 L Pulse Oximetry 97 97 100 05/27/18 00:00 05/27/18 00:35 05/27/18 00:37 Temperature 100.2 F H Pulse Rate 104 H 105 H Respiratory Rate 13 13 13 Blood Pressure 103/55 L Pulse Oximetry 97 100 05/27/18 01:00 05/27/18 02:00 05/27/18 03:00 Temperature 100.4 F H 100.9 F H Pulse Rate 112 H 117 H 112 H Respiratory Rate 15 15 14 Blood Pressure 117/57 L 115/59 L 107/53 L Pulse Oximetry 100 100 99 05/27/18 03:45 05/27/18 04:00 05/27/18 04:02 Temperature 100.8 F H Pulse Rate 117 H 114 H Respiratory Rate 17 14 14 Blood Pressure 107/53 L Pulse Oximetry 98 98 100 05/27/18 04:04 05/27/18 05:00 05/27/18 06:00 Temperature Pulse Rate 114 H 113 H 114 H Respiratory Rate 12 14 13 Blood Pressure 109/52 L 105/55 L Pulse Oximetry 100 100 05/27/18 06:45 05/27/18 07:00 05/27/18 07:15 Temperature 102.4 F H 102.6 F H 102.6 F H Pulse Rate 115 H 115 H 117 H Respiratory Rate 14 14 14 Blood Pressure 109/51 L 108/54 L 112/56 L Pulse Oximetry 100 100 100 05/27/18 07:30 05/27/18 07:45 05/27/18 08:00 Temperature 102.7 F H 102.9 F H 103.1 F H Pulse Rate 117 H 117 H 133 H Respiratory Rate 14 14 21 Blood Pressure 108/51 L 109/55 L 119/54 L Pulse Oximetry 100 100 97 05/27/18 08:07 05/27/18 08:15 05/27/18 08:30 Temperature 103.1 F H 103.5 F H Pulse Rate 123 H 133 H Respiratory Rate 12 18 23 Blood Pressure 107/53 L 106/54 L Pulse Oximetry 93 L 96 92 L 05/27/18 08:45 05/27/18 09:00 05/27/18 09:15 Temperature 103.3 F H 102.7 F H 102.2 F H Pulse Rate 121 H 117 H 116 H Respiratory Rate 17 14 15 Blood Pressure 102/50 L 103/51 L 100/53 L Pulse Oximetry 92 L 92 L 93 L 05/27/18 09:30 05/27/18 09:45 05/27/18 10:00 Temperature 101.8 F H 101.3 F H 100.9 F H Pulse Rate 113 H 117 H 116 H Respiratory Rate 14 16 17 Blood Pressure 99/51 L 102/50 L 120/49 L Pulse Oximetry 94 L 95 95 05/27/18 10:15 05/27/18 10:30 05/27/18 10:45 Temperature 100.8 F H 100.6 F H 100.6 F H Pulse Rate 118 H 110 H 104 H Respiratory Rate 17 15 14 Blood Pressure 108/54 L 99/51 L 88/42 L Pulse Oximetry 95 95 96 05/27/18 10:53 05/27/18 11:00 05/27/18 11:15 Temperature 100.4 F H 100.4 F H 100.4 F H Pulse Rate 106 H 104 H 107 H Respiratory Rate 14 13 16 Blood Pressure 91/45 L 90/43 L 94/47 L Pulse Oximetry 96 96 97 05/27/18 11:30 05/27/18 11:45 05/27/18 12:00 Temperature 99.9 F H 99.1 F 98.6 F Pulse Rate 103 H 102 H 103 H Respiratory Rate 14 14 13 Blood Pressure 92/44 L 96/46 L 95/47 L Pulse Oximetry 93 L 94 L 95 05/27/18 12:23 Temperature Pulse Rate Respiratory Rate 12 Blood Pressure Pulse Oximetry Intake & Output 05/26/18 05/27/18 05/27/18 18:59 06:59 18:59 Intake Total 1915 / 1915 2505 / 2505 Output Total 975 / 975 1700 / 1700 Balance 940 / 940 805 / 805 Weight 83.5 kg Intake: IV 1855 / 1855 2505 / 2505 Diprivan 1000 mg/100 ml Inj 1, 200 / 200 200 / 200 000 mg In 100 ml @ 5 MCG/KG/MIN 2.421 mls/hr IV.CONT TITRATE PRN Rx#:[id number] NS Inj 1,000 ML @ 80 mls/hr IV. 1000 / 1000 2000 / 2000 CONT .[id number] [facility] Rx#:[id number] Ofirmev Inj 1,000 mg In 100 ml 100 / 100 100 / 100 @ 400 mls/hr IV.SIG Q6H PRN Rx# :[id number] KCl 20 mEq Premix Inj 20 meq In 200 / 200 100 / 100 100 ml @ 50 mls/hr IV.SIG Q2H PRN Rx#:[id number] fentaNYL 10 mcg/mL Premix Drip 250 / 250 2,500 mcg In 250 ml @ 50 MCG/HR 5 mls/hr IV.SIG TITRATE PRN Rx #:[id number] Keppra Inj 500 MG In NS Inj 100 105 / 105 105 / 105 ML @ 400 mls/hr IV.SIG Q12H [facility] Rx#:[id number] Oral 0 / 0 Tube Irrigant 60 / 60 Output: Urine Amount (Catheter) 675 / 675 1700 / 1700 Indwelling Temp Sensing 675 / 675 1700 / 1700 Catheter Gastric Drainage 300 / 300 0 / 0 Orogastric Tube 300 / 300 0 / 0 Other: # Bowel Movements 0 - Constitutional no acute distress, thin, obtunded - Routine HEENT Exam Head: Present: normocephalic, atraumatic Eye: Present: PERRL ENT: Present: oropharynx clear, dentition normal - Routine Neck Exam Present: supple, trachea midline, meningismus - Routine Respiratory Exam Present: patient mechanically ventilated - Detailed Cardiovascular Exam Auscultation: Present: normal physiologic split - Routine Abdominal Exam Present: soft, normoactive bowel sounds - Routine Extremities Exam Present: pulses intact, normal capillary refill - Routine Skin Exam Present: intact - Detailed Neurological Exam: Coma Scale Eye Opening: None Verbal Response: None Motor Response: Abnormal flexion [place] Coma Scale Total: 5 - Routine Psychiatric Exam Present: unable to assess - Urinary Catheter Management Indwelling Temp Sensing Catheter Cath placed during this visit: yes Reason for continuing: Hourly intake/output Insertion date: 05/25/18 Insertion time: 14:00 Assessment and Plan - Plan HD#2 23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 05/25/18 10:49 CONCLUSION: Small 0.3 cm hyperdense focus seen in the left occipital region which could potentially represent small focal hemorrhage. No other possible areas of hemorrhage are seen. Plan: GCS-5 ( flexes with BUE). ICP monitor removed yesterday Neuro exam does not correlate with head CT r/o YUN, recommend Brain MRI for prognostication EEG to r/o subclinical seizures Cont. Neuro checks q1hr, may need replacement of ICP monitor Discussed Condition With: Discussed condition with patient's parents
[2018-05-27] MEDS ORDERED: Midazolam Inj 5 MG/ML 1 ML Vial IV.PUSH PRN (14:54)
[2018-05-27] MEDS: Vancomycin Inj 1,250 MG in Sodium Chlor 0.9% Inj 250 ML IV.SIG SCH (15:18)
[2018-05-27] MEDS: Piperacil/Tazo 4.5 GM Premix 4.5 GM/100 ML BAG IV.SIG SCH ×2 (15:19→19:37)
[2018-05-27] MEDS: fentaNYL 10 mcg/mL Premix Drip 2,500 MCG/250 ML BAG IV.SIG PRN (17:12)
--- NOTE | 2018-05-27 18:51 | CT ---
EXAM DATE: 05/27/2018 6:42 PM EST AGE/SEX: 23 years / Female INDICATIONS: Follow up head injury. CLINICAL DATA: This is the patient's subsequent encounter. Patient reports that signs and symptoms h ave been present for 2 days and indicates a pain score of Nonresponsive. MEDICAL/SURGICAL HISTORY: Hypothyroidism. None. RADIATION DOSE: 30.03 CTDI (mGy) COMPARISON: [facility] [place], CT HEAD W/O CONTRAST, 05/25/2018. . TECHNIQUE: CT of the head without contrast. Using automated exposure control and adjustment of the mA and/or kV according to patient size, radiation dose was kept as low as reasonably achievable to ob tain optimal diagnostic quality images. DICOM format image data is available electronically for revi ew and comparison. FINDINGS: Cerebrum: The ventricles are normal. There is a small amount of acute blood products layering in the left occipital horn, slightly increased from the prior study. Otherwise, no midline shift, mass lesi on, or acute infarction. No other acute blood products are identified. No extraaxial fluid collection s are seen. Posterior Fossa: The cerebellum and brainstem demonstrate no acute abnormality. The 4th ventricle is midline. The cerebellopontine angle is within normal limits. Extracranial: The visualized sinuses are clear. Skull: The calvaria is intact. No skull fracture. CONCLUSION: 1. There is a small volume of acute blood products layering in the left occipital horn, slightly inc reased from the prior study. No other acute blood products are identified and ventricles are normal i n size. 2. Remainder of the examination is within normal limits. . Electronically signed by: Tim Masters MD 05/27/2018 6:50 PM EST
--- NOTE | 2018-05-27 19:10 | CT ---
EXAM DATE: 05/27/2018 6:53 PM EST AGE/SEX: 23 years / Female INDICATIONS: Follow up head injury. CLINICAL DATA: This is the patient's subsequent encounter. Patient reports that signs and symptoms h ave been present for 2 days and indicates a pain score of Nonresponsive. MEDICAL/SURGICAL HISTORY: Hypothyroidism. None. RADIATION DOSE: 26.37 CTDI (mGy) COMPARISON: No prior exams available for comparison. TECHNIQUE: Volumetric scanning was performed using a multirow detector CT scanner during bolus infus ion of 75 ml Omnipaque 350 (iohexol) nonionic water-soluble contrast as a single exam dose. The da ta was postprocessed with a variety of visualization algorithms including full-volume maximum intensi ty projection, multiplanar sliding thin-slab reformation, curved-planar reformation, and surface-rend ering techniques. Using automated exposure control and adjustment of the mA and/or kV according to p atient size, radiation dose was kept as low as reasonably achievable to obtain optimal diagnostic arian lity images. DICOM format image data is available electronically for review and comparison. FINDINGS: The study is technically limited as there is more contrast within the venous structure then in the ar terial structures. Aortic Arch: There is a three-vessel origin of the great vessels from the aorta. No evidence of ost ial narrowing Right Carotid: The common carotid artery is intact. The carotid bulb has a normal configuration wit hout ulceration or narrowing. The internal carotid artery lumen is smooth without stenosis. The ext ernal carotid artery is intact. Left Carotid: The common carotid artery is intact. The carotid bulb has a normal configuration with out ulceration or narrowing. The internal carotid artery lumen is smooth without stenosis. The exte rnal carotid artery is intact. Vertebrals: The vertebral arteries have a symmetric diameter. No stenotic lesions are seen. Percent stenosis is calculated using the diameter of the stenotic region over the diameter of the nor mal distal internal carotid artery. CONCLUSION: Technically limited study with poor timing of the scan with more contrast seen in the systemic venous structures. However, it appears that the arterial structures in the neck are grossly normal. Electronically signed by: Tim Orellana MD 05/27/2018 7:09 PM EST
[2018-05-28] MEDS: Piperacil/Tazo 4.5 GM Premix 4.5 GM/100 ML BAG IV.SIG SCH ×5 (01:09→23:09)
[2018-05-28] MEDS: Oral Hygiene Kit OROPHARYNG SCH ×5 (01:10→23:09)
[2018-05-28] MEDS: Vancomycin Inj 1,250 MG in Sodium Chlor 0.9% Inj 250 ML IV.SIG SCH ×2 (02:35→14:43)
[2018-05-28] MEDS: Propofol 1000 mg/100 ml Inj 1,000 MG/100 ML BOTTLE IV.CONT PRN ×3 (03:19→17:41)
--- NOTE | 2018-05-28 04:51 | XR ---
EXAM DATE: 05/28/2018 4:38 AM EST AGE/SEX: 23 years / Female INDICATIONS: Infiltrates. CLINICAL DATA: This is the patient's subsequent encounter. Patient reports that signs and symptoms h ave been present for 3 days and indicates a pain score of Nonresponsive. MEDICAL/SURGICAL HISTORY: Hypothyroidism. None. COMPARISON: [facility] [place], CHEST 1V SINGLE AP, 05/27/2018. . FINDINGS: There is bilateral lower lobe airspace disease again seen. Endotracheal tube and enteric tube again n oted. Osseous structures are intact. Heart size normal. CONCLUSION: Stable bilateral infiltrates. Electronically signed by: George Goncalves MD 05/28/2018 4:50 AM EST
[2018-05-28 05:26] LABS: Baso % (Auto) 0.2 % (0.0-2.0); Eos # (Auto) 0.3 th/mm3 (0.0-0.4); Eos % (Auto) 1.8 % (0.0-4.0); Hematocrit 22.9 % (35.0-46.0); Hemoglobin 7.8 gm/dL (11.6-15.3); Lymph # (Auto) 1.3 th/mm3 (1.0-4.8); Lymph % (Auto) 8.3 % (9.0-44.0); Mean Corpuscular HGB Conc 34.1 % (32.0-36.0); Mean Corpuscular Hemoglobin 27.4 pg (27.0-34.0); Mean Corpuscular Volume 80.4 fL (80.0-100.0); Mono # (Auto) 0.8 th/mm3 (0.0-0.9); Mono % (Auto) 5.3 % (0.0-8.0); Neut % (Auto) 84.4 % (16.0-70.0); Platelet Count 157 th/mm3 (150-450); Red Blood Count 2.85 mil/mm3 (4.00-5.30); Red Cell Distribution Width 13.1 % (11.6-17.2); White Blood Count 15.4 th/mm3 (4.0-11.0)
[2018-05-28] MEDS: Sod Chloride 0.9% Inj 1,000 ML IV.CONT SCH ×2 (05:36→23:08)
[2018-05-28 05:42] LABS: Anion Gap 9 meq/L (5-15); Blood Urea Nitrogen 5 mg/dL (7-18); Calcium 7.5 mg/dL (8.5-10.1); Carbon Dioxide 22.1 meq/L (21.0-32.0); Chloride 114 meq/L (98-107); Glomerular Filtration Rate Greater Than 89 mL/min (>89); Glucose,Random 101 mg/dL (74-106); Potassium 3.6 meq/L (3.5-5.1); Sodium 145 meq/L (136-145)
[2018-05-28] MEDS: Levothyroxine 112 MCG Tablet PO SCH (06:04)
[2018-05-28 06:28] LABS: ABG Base Excess -1.2 mmol/L (-2-2); ABG PCO2 38 mmHg (38-42); ABG PO2 111 mmHg (61-120)
[2018-05-28] MEDS: Chlorhexidine 0.12% Oral Kit 15 ML UDC OROPHARYNG SCH ×2 (08:00→20:15)
[2018-05-28] MEDS: Senna/Docusate Sodium 8.6/50 MG Tablet PO SCH ×2 (09:00→20:15)
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
--- NOTE | 2018-05-28 10:54 | P.PNNS ---
Subjective Interval history: HD#3 Intubated, sedated on Propofol and Fentanyl Awaits Lt. arm ORIF Physical Exam Vital signs: Vital Signs 05/27/18 10:45 05/27/18 10:53 05/27/18 11:00 Temperature 100.6 F H 100.4 F H 100.4 F H Pulse Rate 104 H 106 H 104 H Respiratory Rate 14 14 13 Blood Pressure 88/42 L 91/45 L 90/43 L Pulse Oximetry 96 96 96 05/27/18 11:15 05/27/18 11:30 05/27/18 11:45 Temperature 100.4 F H 99.9 F H 99.1 F Pulse Rate 107 H 103 H 102 H Respiratory Rate 16 14 14 Blood Pressure 94/47 L 92/44 L 96/46 L Pulse Oximetry 97 93 L 94 L 05/27/18 12:00 05/27/18 12:15 05/27/18 12:23 Temperature 98.6 F 99.1 F Pulse Rate 103 H 108 H Respiratory Rate 13 16 12 Blood Pressure 95/47 L 99/55 L Pulse Oximetry 95 97 05/27/18 12:30 05/27/18 13:00 05/27/18 13:12 Temperature 99.7 F H 99.3 F 100.8 F H Pulse Rate 121 H 141 H 122 H Respiratory Rate 22 33 H 27 H Blood Pressure 101/57 L 104/59 L Pulse Oximetry 94 L 93 L 95 05/27/18 13:15 05/27/18 13:30 05/27/18 13:45 Temperature 100.8 F H 100.8 F H 100.6 F H Pulse Rate 116 H 111 H 110 H Respiratory Rate 16 14 15 Blood Pressure 96/55 L 99/53 L 104/57 L Pulse Oximetry 95 95 97 05/27/18 14:00 05/27/18 14:37 05/27/18 15:00 Temperature 100.6 F H 100.6 F H 100.6 F H Pulse Rate 110 H 113 H 106 H Respiratory Rate 14 16 13 Blood Pressure 111/56 L 113/54 L 108/51 L Pulse Oximetry 98 98 96 05/27/18 15:23 05/27/18 15:53 05/27/18 16:00 Temperature 100.4 F H 100.2 F H 100.2 F H Pulse Rate 105 H 103 H 104 H Respiratory Rate 13 13 13 Blood Pressure 108/52 L 103/55 L Pulse Oximetry 97 97 98 05/27/18 16:09 05/27/18 16:10 05/27/18 16:23 Temperature 100.2 F H Pulse Rate 104 H 104 H Respiratory Rate 12 12 13 Blood Pressure 117/57 L Pulse Oximetry 98 98 05/27/18 16:53 05/27/18 17:00 05/27/18 17:23 Temperature 100.0 F H 100.0 F H 100.2 F H Pulse Rate 107 H 107 H 108 H Respiratory Rate 13 13 14 Blood Pressure 106/53 L 110/56 L Pulse Oximetry 99 99 100 05/27/18 17:53 05/27/18 18:00 05/27/18 18:23 Temperature 100.4 F H 100.4 F H 100.4 F H Pulse Rate 107 H 108 H 112 H Respiratory Rate 13 13 23 Blood Pressure 112/56 L 116/57 L Pulse Oximetry 100 100 100 05/27/18 18:45 05/27/18 19:00 05/27/18 19:19 Temperature 99.0 F 99.0 F Pulse Rate 118 H 119 H 109 H Respiratory Rate 16 13 Blood Pressure 122/56 L Pulse Oximetry 100 96 97 05/27/18 20:00 05/27/18 20:52 05/27/18 21:00 Temperature 98.6 F 97.7 F 97.9 F Pulse Rate 114 H 108 H 109 H Respiratory Rate 12 12 12 Blood Pressure 114/54 L 115/54 L Pulse Oximetry 98 100 99 05/27/18 21:30 05/27/18 22:00 05/27/18 22:30 Temperature 97.7 F 97.7 F 97.7 F Pulse Rate 105 H 103 H 103 H Respiratory Rate 12 12 12 Blood Pressure 108/52 L 105/53 L 104/53 L Pulse Oximetry 99 99 99 05/27/18 23:00 05/27/18 23:16 05/27/18 23:30 Temperature 97.7 F 97.7 F Pulse Rate 101 H 103 H 107 H Respiratory Rate 12 12 12 Blood Pressure 105/51 L 101/49 L Pulse Oximetry 100 99 100 05/28/18 00:00 05/28/18 00:30 05/28/18 01:00 Temperature 97.5 F L 97.7 F 97.9 F Pulse Rate 107 H 106 H 104 H Respiratory Rate 12 12 12 Blood Pressure 103/54 L 103/54 L 100/49 L Pulse Oximetry 100 100 100 05/28/18 01:30 05/28/18 02:00 05/28/18 02:30 Temperature 98.2 F 98.2 F 98.2 F Pulse Rate 102 H 101 H 100 H Respiratory Rate 12 12 12 Blood Pressure 100/53 L 97/51 L 111/54 L Pulse Oximetry 100 100 99 05/28/18 03:00 05/28/18 03:30 05/28/18 04:00 Temperature 98.2 F 98.1 F 101.1 F H Pulse Rate 99 H 106 H 109 H Respiratory Rate 12 12 12 Blood Pressure 100/51 L 108/51 L 116/59 L Pulse Oximetry 99 100 100 05/28/18 04:08 05/28/18 04:30 05/28/18 05:00 Temperature 101.3 F H 101.1 F H Pulse Rate 109 H 113 H 110 H Respiratory Rate 12 12 12 Blood Pressure 106/52 L Pulse Oximetry 100 100 100 05/28/18 05:01 05/28/18 05:30 05/28/18 06:00 Temperature 101.1 F H 101.1 F H 100.6 F H Pulse Rate 111 H 107 H 105 H Respiratory Rate 12 12 12 Blood Pressure 109/54 L 108/53 L 109/52 L Pulse Oximetry 100 100 97 05/28/18 08:01 Temperature Pulse Rate 89 Respiratory Rate 12 Blood Pressure Pulse Oximetry 98 Intake & Output 05/27/18 05/28/18 05/28/18 18:59 06:59 18:59 Intake Total 1712.5 / 1712.5 2327.5 / 2327.5 100 / 100 Output Total 1700 / 1700 800 / 800 Balance 12.5 / 12.5 1527.5 / 1527.5 100 / 100 Weight 86.7 kg Intake: IV 1712.5 / 1712.5 1967.5 / 1966.5 100 / 100 Diprivan 1000 mg/100 ml Inj 1, 200 / 200 100 / 100 000 mg In 100 ml @ 5 MCG/KG/MIN 2.421 mls/hr IV.CONT TITRATE PRN Rx#:[id number] NS Inj 1,000 ML @ 80 mls/hr IV. 1000 / 1000 CONT .[id number] [facility] Rx#:[id number] Ofirmev Inj 1,000 mg In 100 ml 100 / 100 100 / 100 @ 400 mls/hr IV.SIG Q6H [facility] Rx# :[id number] Zosyn 4.5 GM Premix 4.5 gm In 100 / 100 300 / 300 100 ml @ 200 mls/hr IV.SIG Q6H [facility] Rx#:[id number] Vancomycin Inj 1,250 MG In NS 262.5 / 262.5 262.5 / 262.5 Inj 250 ML @ 250 mls/hr IV.SIG Q12H [facility] Rx#:[id number] fentaNYL 10 mcg/mL Premix Drip 250 / 250 2,500 mcg In 250 ml @ 50 MCG/HR 5 mls/hr IV.SIG TITRATE PRN Rx #:[id number] Keppra Inj 500 MG In NS Inj 100 105 / 105 ML @ 400 mls/hr IV.SIG Q12H [facility] Rx#:[id number] Tube Feeding 240 / 240 Tube Irrigant 120 / 120 Output: Urine Amount (Catheter) 1500 / 1500 800 / 800 Indwelling Temp Sensing 1500 / 1500 800 / 800 Catheter Gastric Drainage 200 / 200 Orogastric Tube 200 / 200 - Routine HEENT Exam Head: Present: normocephalic, atraumatic Eye: Present: PERRL ENT: Present: oropharynx clear - Routine Neck Exam Present: supple, full ROM, trachea midline - Routine Abdominal Exam Present: soft, normoactive bowel sounds - Routine Extremities Exam Comments: No clubbing, cyanosis or edema - Routine Skin Exam Present: intact - Routine Neurological Exam Intubated and sedated Off sedation, Eyes do not open to deep painful stimulus Pupils react Localizes briskly on the right, flexes on the left - Urinary Catheter Management Indwelling Temp Sensing Catheter Cath placed during this visit: yes Reason for continuing: Hourly intake/output Insertion date: 05/25/18 Insertion time: 14:00 Assessment and Plan - Plan I have reviewed the clinical and radiological findings Chest X-Ray 05/25/18 10:45 CONCLUSION: No acute abnormality is seen. The ET tube is in good position. Pelvis X-Ray 05/25/18 10:45 CONCLUSION: Negative AP pelvis. Abdomen/Pelvis CT 05/25/18 10:49 CONCLUSION: No acute injury is identified within the abdomen or pelvis. Cervical Spine CT 05/25/18 10:49 CONCLUSION: Negative cervical spine CT examination. Chest CT 05/25/18 10:49 CONCLUSION: 1. No acute injury is identified within the chest. 2. Please refer to abdomen and pelvis CT report for description of the subdiaphragmatic findings. Head CT 05/25/18 10:49 CONCLUSION: Small 0.3 cm hyperdense focus seen in the left occipital region which could potentially represent small focal hemorrhage. No other possible areas of hemorrhage are seen. . Humerus X-Ray 05/25/18 10:49 CONCLUSION: Mid left humeral shaft fracture. Neuro: TBI, GCS 7. Although she has a very small hemorrhage without mass effect , her neurological examination shows some purposeful movement today but does not correlate with her head CT. Recc: Brain MRI for prognostication Cont. present management Pulmonary: aggressive pulmonary toilette, nasotracheal suction, and breathing treatments with nebulizers. Upper extremity fracture. Will go to the OR for ORIF Discussed with patient's mother Discussed Condition With: Patients mother
[2018-05-28] MEDS: Pantoprazole Inj 40 MG Vial IV.PUSH SCH (12:39)
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
[2018-05-28 12:58] LABS: Bacteria,Urine Rare /hpf; Bilirubin,Urine Negative (Negative); Clarity,Urine Hazy (Clear); Color,Urine Yellow (Yellw/Straw); Glucose,Urine (UA) Negative (Negative); Leukocyte Esterase,Urine Negative (Negative); Mucus,Urine Few /lpf (Occasional); Nitrite,Urine Negative (Negative); Specific Gravity,Urine 1.016 (1.002-1.035); Squamous Epithelial Cell,Urine <1 /hpf (0-5)
[2018-05-28] MEDS: fentaNYL 10 mcg/mL Premix Drip 2,500 MCG/250 ML BAG IV.SIG PRN (14:00)
--- NOTE | 2018-05-28 15:31 | P.DIET ---
Nutritional Evaluation Type of nutrition evaluation: initial Nutrition consult regarding: Tube Feeding Screening comments: 05/28 TF review Objective - Diagnosis closed head injury - Objective Body Mass Index: 29.9 % IBW: 141 (IBW = 135lb) Body Weight Used for Calculations: IBW Energy Needs - Lower Range (kCal/kg): 25 Energy Needs - Upper Range (kCal/kg): 30 Lower Limit kCal/kg (kCals): 1,534 Upper Limit kCal/kg (kCals): 1,841 Lower Limit Protein Factor (Grams per Kg): 1.2 Upper Limit Protein Factor (Grams per Kg): 1.5 Lower Protein Needs (Protein): 74 Upper Protein Needs (Protein): 92 Dietitian Reviewed in Medical Record: Curent medications, Intake & Output, Labs , Medical history, Tube feeding Diet Order: TF'ing Objective Comments: PMH: Avani's disease (chronic lymphocytic thyroiditis) Meds: Synthroid, propofol Labs: random glucose 110 121 101 Assessment Assessment: Pt currently intubated, sedated w/ propofol, and on mech vent. Pt receiving Oxepa @ 40mL/hr per MD. RD to recommend Pivot @ 45mL x 22hr (d/t Synthroid dosing) to provide 1485kcal, 93g of protein, and 729mL of free water to best meet pts assessed needs. Additional kcal (1.1kcal/mL) provided by propofol when running. Continue to monitor TF tolerance. Labs reviewed, dietitian following. Recommendations: 1. RD to recommend Pivot @ 45mL x 22hr (d/t Synthroid dosing) to best meet pts assessed needs 2. Additional kcal (1.1kcal/mL) provided by propofol when running 3. Continue to monitor TF tolerance 4. Dietitian following Dietitian to Monitor: Lab values, Intake & Output, Tube feeding tolerance, Medical course
[2018-05-28 19:00] LABS: Baso % (Auto) 0.1 % (0.0-2.0); Eos # (Auto) 0.5 th/mm3 (0.0-0.4); Eos % (Auto) 3.5 % (0.0-4.0); Hematocrit 26.1 % (35.0-46.0); Hemoglobin 8.6 gm/dL (11.6-15.3); Lymph # (Auto) 0.9 th/mm3 (1.0-4.8); Lymph % (Auto) 6.7 % (9.0-44.0); Mean Corpuscular Hemoglobin 26.5 pg (27.0-34.0); Mean Corpuscular Volume 80.4 fL (80.0-100.0); Mean Platelet Volume 7.6 fL (7.0-11.0); Mono # (Auto) 0.8 th/mm3 (0.0-0.9); Mono % (Auto) 5.8 % (0.0-8.0); Neut # (Auto) 11.2 th/mm3 (1.8-7.7); Neut % (Auto) 83.9 % (16.0-70.0); Platelet Count 158 th/mm3 (150-450); Red Blood Count 3.24 mil/mm3 (4.00-5.30); Red Cell Distribution Width 13.2 % (11.6-17.2); White Blood Count 13.4 th/mm3 (4.0-11.0)
[2018-05-29] MEDS: Propofol 1000 mg/100 ml Inj 1,000 MG/100 ML BOTTLE IV.CONT PRN ×5 (00:24→23:46)
[2018-05-29] MEDS: Vancomycin Inj 1,250 MG in Sodium Chlor 0.9% Inj 250 ML IV.SIG SCH ×2 (01:31→14:38)
[2018-05-29] MEDS: Sod Chloride 0.9% Inj 1,000 ML IV.CONT SCH ×2 (04:58→20:38)
[2018-05-29] MEDS: Oral Hygiene Kit OROPHARYNG SCH ×4 (04:58→23:47)
[2018-05-29 04:59] LABS: Anion Gap 8 meq/L (5-15); Blood Urea Nitrogen 4 mg/dL (7-18); Calcium 7.5 mg/dL (8.5-10.1); Carbon Dioxide 22.9 meq/L (21.0-32.0); Chloride 116 meq/L (98-107); Glomerular Filtration Rate Greater Than 89 mL/min (>89); Glucose,Random 97 mg/dL (74-106); Potassium 3.4 meq/L (3.5-5.1)
[2018-05-29] MEDS: Piperacil/Tazo 4.5 GM Premix 4.5 GM/100 ML BAG IV.SIG SCH ×4 (05:00→23:47)
[2018-05-29] MEDS: Levothyroxine 112 MCG Tablet PO SCH (05:00)
[2018-05-29 05:05] LABS: Sodium 147 meq/L (136-145)
[2018-05-29 05:29] LABS: ABG Base Excess -0.2 mmol/L (-2-2); ABG PCO2 33 mmHg (38-42); ABG PO2 195 mmHg (61-120)
[2018-05-29 05:45] LABS: Baso % (Auto) 0.3 % (0.0-2.0); Eos # (Auto) 0.5 th/mm3 (0.0-0.4); Eos % (Auto) 4.1 % (0.0-4.0); Hematocrit 26.6 % (35.0-46.0); Hemoglobin 8.2 gm/dL (11.6-15.3); Lymph # (Auto) 1.1 th/mm3 (1.0-4.8); Lymph % (Auto) 8.9 % (9.0-44.0); Mean Corpuscular HGB Conc 30.9 % (32.0-36.0); Mean Corpuscular Hemoglobin 26.2 pg (27.0-34.0); Mean Corpuscular Volume 84.9 fL (80.0-100.0); Mean Platelet Volume 8.1 fL (7.0-11.0); Mono # (Auto) 0.8 th/mm3 (0.0-0.9); Mono % (Auto) 6.1 % (0.0-8.0); Neut # (Auto) 10.3 th/mm3 (1.8-7.7); Neut % (Auto) 80.6 % (16.0-70.0); Platelet Count 164 th/mm3 (150-450); Red Blood Count 3.13 mil/mm3 (4.00-5.30); Red Cell Distribution Width 13.5 % (11.6-17.2); White Blood Count 12.8 th/mm3 (4.0-11.0)
[2018-05-29] MEDS ORDERED: ceFAZolin 1 GM Premix Inj 0 GM/0 ML PIGGYBACK IV.SIG ONE (07:00)
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
--- NOTE | 2018-05-29 08:38 | P.OP ---
- Preoperative Diagnosis (1) Fracture, humerus closed Date of procedure: 05/29/18 Procedure: Open reduction internal fixation left humerus Anesthesia: GETA Surgeon: Tucker Corral MD Roster Clerk: Delon Pearce PA-C The surgical procedure was assisted by my physician family medicine physician assistant. My P.A. presence was necessary throughout this case for the manipulation and positioning of the surgical extremity. My P.A. was assisting me throughout the duration of this procedure. The skill set of a physician family medicine physician assistant was medically necessary to complete this procedure. During the surgical case the surgical aides teacher was working at the back table and the physician family medicine physician assistant was directly assisting me. Operation and Findings: Implants used: Synthes Details of procedure: Patient was seen and evaluated preoperatively. She is currently intubated and sedated in the intensive care unit. She has been cleared for surgery. Treatment options were discussed regarding humerus fracture including surgical and nonsurgical treatments. After detailed discussion of risk and benefits of procedure patient's family wishes to proceed with surgery. Risks of surgery include bleeding, infection, nonunion, malunion, painful hardware, loss of motion of shoulder and elbow, weakness and numbness of arm, as well as medical competitions including blood clots stroke and . Patient was brought to operating room and placed on the OR table. GETA was administered by anesthesiologist. Patient was positioned in lateral decubitus position. Extremities were well-padded. Axillary roll was placed. Operative arm and shoulder were prepped with alcohol followed by Hibiclens and draped usual sterile fashion. Timeout procedure was performed. IV antibiotics were given prior to incision. A standard posterior approach was utilized. Subcutaneous tissues was dissected with Bovie. The triceps muscle was split midline. The radial nerve was identified and protected throughout the procedure. The nerve was intact. The fracture was identified. Soft tissue was removed from the fracture site. Fracture site was cleaned with curettes. At this point the fracture was reduced using fracture tenaculums. Multiplanar fluoroscopy confirmed excellent of fracture. A Synthes 3.5 plate was contoured to fit the humerus. Plate was provisionally held the bone with K wires. 3.5 cortical screws were placed on each side of the fracture. The screws were placed to add compression to fracture. Multiple screws were placed in each side of the fracture. All screws were predrilled and premeasured for appropriate length. Final fluoroscopy revealed excellent alignment of fracture with well-placed hardware. Incision was thoroughly irrigated. Fascia was closed with #1 Vicryl, subcutaneous tissues closed with 3-0 Vicryl, and skin was closed with lissette. Sterile dressings were applied. Needle and sponge counts were correct. Patient was placed into a sling, and then transferred to recovery room in stable condition
[2018-05-29] MEDS ORDERED: Propofol Inj 500 MG/50 ML Vial ONE (08:45)
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
[2018-05-29] MEDS: Chlorhexidine 0.12% Oral Kit 15 ML UDC OROPHARYNG SCH ×2 (10:04→20:38)
[2018-05-29] MEDS: Calcium/Vitamin D 250/125 MG Tablet PO SCH ×3 (10:04→17:11)
[2018-05-29] MEDS: Senna/Docusate Sodium 8.6/50 MG Tablet PO SCH ×2 (10:04→20:39)
[2018-05-29] MEDS: fentaNYL 10 mcg/mL Premix Drip 2,500 MCG/250 ML BAG IV.SIG PRN (10:05)
[2018-05-29] MEDS: Pantoprazole Inj 40 MG Vial IV.PUSH SCH (12:03)
[2018-05-29] MEDS: Enoxaparin Inj 40 MG/0.4 ML Syringe SQ SCH (12:07)
[2018-05-29] MEDS: Artificial Tears Opth Drops 15 ML Bottle EACH EYE SCH ×4 (12:08→23:47)
--- NOTE | 2018-05-29 12:45 | XR ---
EXAM DATE: 05/29/2018 12:39 PM EST AGE/SEX: 23 years / Female INDICATIONS: ORIF left humerus fracture. CLINICAL DATA: This is the patient's subsequent encounter. Patient reports that signs and symptoms h ave been present for 4 - 6 days and indicates a pain score of Nonresponsive. MEDICAL/SURGICAL HISTORY: Non-responsive. Non-responsive. COMPARISON: [facility] – [place], HUMERUS LEFT MIN 2V, 05/25/2018. . FINDINGS: Plate with screws is seen bridging the fracture midshaft of the humerus. Alignment anatomic. CONCLUSION: Anatomic alignment across the humeral fracture bridged by a plate. Electronically signed by: Wally Reis MD 05/29/2018 12:43 PM EST
[2018-05-29] MEDS ORDERED: Pharmacy Ordered Lab Info OTHER ONE (13:45)
[2018-05-30] MEDS ORDERED: Pharmacy Ordered Lab Info OTHER ONE (00:45)
[2018-05-30 03:52] LABS: Baso % (Auto) 0.3 % (0.0-2.0); Eos # (Auto) 0.8 th/mm3 (0.0-0.4); Eos % (Auto) 6.1 % (0.0-4.0); Hematocrit 26.3 % (35.0-46.0); Hemoglobin 8.7 gm/dL (11.6-15.3); Lymph # (Auto) 1.2 th/mm3 (1.0-4.8); Lymph % (Auto) 9.4 % (9.0-44.0); Mean Corpuscular HGB Conc 33.1 % (32.0-36.0); Mean Corpuscular Hemoglobin 26.9 pg (27.0-34.0); Mean Corpuscular Volume 81.3 fL (80.0-100.0); Mean Platelet Volume 8.7 fL (7.0-11.0); Mono % (Auto) 7.7 % (0.0-8.0); Neut % (Auto) 76.5 % (16.0-70.0); Platelet Count 180 th/mm3 (150-450); Red Blood Count 3.23 mil/mm3 (4.00-5.30); Red Cell Distribution Width 13.6 % (11.6-17.2)
--- NOTE | 2018-05-30 04:45 | XR ---
EXAM DATE: 05/30/2018 4:42 AM EST AGE/SEX: 23 years / Female INDICATIONS: Shortness of breath. CLINICAL DATA: This is the patient's subsequent encounter. Patient reports that signs and symptoms h ave been present for 4 - 6 days and indicates a pain score of Nonresponsive. MEDICAL/SURGICAL HISTORY: Hypothyroidism. . ORIF left humerus. COMPARISON: C, CHEST 1V SINGLE AP, 05/28/2018. . FINDINGS: Single AP view the chest. Endotracheal tube and nasogastric tube remain in place. Persistent bilatera l pulmonary parenchymal opacity. No significant interval change. No evidence of pleural effusion or p neumothorax. CONCLUSION: No change in bilateral pulmonary opacity. Electronically signed by: Jah Cruz MD 05/30/2018 4:43 AM EST
[2018-05-30 05:02] LABS: Eosinophils 2 % (0-4); Lymphocytes 7 % (9-44); Monocytes 13 % (0-8); Tallied Nucleated RBC 1 (0-0)
[2018-05-30 05:04] LABS: Platelet Estimate Normal (Normal); Platelet Morphology Normal (Normal)
[2018-05-30] MEDS: Vancomycin Inj 1,250 MG in Sodium Chlor 0.9% Inj 250 ML IV.SIG SCH (05:05)
[2018-05-30] MEDS: Propofol 1000 mg/100 ml Inj 1,000 MG/100 ML BOTTLE IV.CONT PRN (05:06)
[2018-05-30] MEDS: Oral Hygiene Kit OROPHARYNG SCH ×3 (05:06→16:19)
[2018-05-30] MEDS: Artificial Tears Opth Drops 15 ML Bottle EACH EYE SCH ×5 (05:06→20:40)
[2018-05-30] MEDS: Piperacil/Tazo 4.5 GM Premix 4.5 GM/100 ML BAG IV.SIG SCH ×2 (06:11→11:32)
[2018-05-30] MEDS: Levothyroxine 112 MCG Tablet PO SCH (06:12)
[2018-05-30] MEDS: Sod Chloride 0.9% Inj 1,000 ML IV.CONT SCH ×2 (06:44→16:49)
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
[2018-05-30] MEDS: Enoxaparin Inj 40 MG/0.4 ML Syringe SQ SCH (08:27)
[2018-05-30] MEDS: Chlorhexidine 0.12% Oral Kit 15 ML UDC OROPHARYNG SCH ×2 (08:27→20:40)
[2018-05-30] MEDS: Calcium/Vitamin D 250/125 MG Tablet PO SCH ×3 (08:27→17:59)
[2018-05-30] MEDS: Senna/Docusate Sodium 8.6/50 MG Tablet PO SCH ×2 (08:28→20:40)
[2018-05-30] MEDS: Dexmedetomidine Inj 200 MCG in Sodium Chlor 0.9% Inj 48 ML IV.CONT PRN ×4 (10:01→21:45)
[2018-05-30] MEDS: fentaNYL 10 mcg/mL Premix Drip 2,500 MCG/250 ML BAG IV.SIG PRN (10:02)
--- NOTE | 2018-05-30 10:24 | P.PNNS ---
Subjective Interval history: pt underwent ORIF L humerus yesterday with Dr. Negrete. intubated, her propofol sedation turned off this morning, moving extremities spontaneously but not opening eyes or following commands. Physical Exam Vital signs: Vital Signs 05/29/18 11:00 05/29/18 11:33 05/29/18 12:00 Temperature 99.1 F 99.0 F 98.8 F Pulse Rate 80 82 79 Respiratory Rate 12 12 12 Blood Pressure 120/61 121/63 Pulse Oximetry 100 99 100 05/29/18 13:00 05/29/18 14:00 05/29/18 15:00 Temperature 98.8 F 99.0 F 99.1 F Pulse Rate 82 93 H 77 Respiratory Rate 12 36 H 12 Blood Pressure 134/72 118/59 L 109/59 L Pulse Oximetry 100 100 100 05/29/18 16:00 05/29/18 17:00 05/29/18 17:26 Temperature 99.3 F 99.1 F Pulse Rate 99 H 85 Respiratory Rate 13 12 14 Blood Pressure 115/61 121/67 Pulse Oximetry 100 100 100 05/29/18 18:00 05/29/18 19:00 05/29/18 19:37 Temperature 99.3 F 99.0 F Pulse Rate 85 82 Respiratory Rate 12 12 12 Blood Pressure 137/78 124/64 Pulse Oximetry 100 100 100 05/29/18 20:00 05/29/18 21:00 05/29/18 22:00 Temperature 98.6 F 98.8 F 98.8 F Pulse Rate 81 77 81 Respiratory Rate 12 12 12 Blood Pressure 129/73 139/75 141/73 H Pulse Oximetry 100 100 100 05/29/18 23:00 05/30/18 00:00 05/30/18 01:00 Temperature 99.0 F 99.9 F H 100.2 F H Pulse Rate 88 90 87 Respiratory Rate 12 13 82 H Blood Pressure 133/68 138/68 122/60 Pulse Oximetry 100 100 100 05/30/18 02:00 05/30/18 03:00 05/30/18 03:54 Temperature 100.0 F H 100.4 F H Pulse Rate 92 H 85 Respiratory Rate 15 15 13 Blood Pressure 136/74 145/76 H Pulse Oximetry 100 100 100 05/30/18 04:00 05/30/18 05:00 05/30/18 06:00 Temperature 100.0 F H 100.6 F H 100.6 F H Pulse Rate 83 91 H 90 Respiratory Rate 15 15 15 Blood Pressure 150/79 H 158/84 H 136/67 Pulse Oximetry 100 100 99 05/30/18 07:00 05/30/18 08:00 Temperature 100.0 F H 100.6 F H Pulse Rate 93 H 97 H Respiratory Rate 123 H 130 H Blood Pressure 140/76 153/75 H Pulse Oximetry 99 99 Intake & Output 05/29/18 05/30/18 05/30/18 18:59 06:59 18:59 Intake Total 1757.5 / 1757.5 2148.5 / 2148.5 355 / 355 Output Total 1100 / 1100 1075 / 1075 Balance 657.5 / 657.5 1073.5 / 1073.5 355 / 355 Weight 89.9 kg Intake: IV 1017.5 / 1017.5 1662.5 / 1662.5 355 / 355 Diprivan 1000 mg/100 ml Inj 1, 200 / 200 200 / 200 000 mg In 100 ml @ 5 MCG/KG/MIN 2.421 mls/hr IV.CONT TITRATE PRN Rx#:[id number] NS Inj 1,000 ML @ 80 mls/hr IV. 1000 / 1000 CONT .[id number] [facility] Rx#:[id number] Zosyn 4.5 GM Premix 4.5 gm In 200 / 200 200 / 200 100 ml @ 200 mls/hr IV.SIG Q6H [facility] Rx#:[id number] Vancomycin Inj 1,250 MG In NS 262.5 / 262.5 262.5 / 262.5 Inj 250 ML @ 250 mls/hr IV.SIG Q12H [facility] Rx#:[id number] fentaNYL 10 mcg/mL Premix Drip 250 / 250 250 / 250 2,500 mcg In 250 ml @ 50 MCG/HR 5 mls/hr IV.SIG TITRATE PRN Rx #:[id number] Keppra Inj 500 MG In NS Inj 100 105 / 105 105 / 105 ML @ 400 mls/hr IV.SIG Q12H [facility] Rx#:[id number] Oral 0 / 0 Tube Feeding 280 / 280 366 / 366 Tube Irrigant 60 / 60 120 / 120 Anesthesia Amount 400 / 400 Output: Estimated Blood Loss 100 / 100 Urine Amount (Catheter) 1000 / 1000 1075 / 1075 Indwelling Temp Sensing 1000 / 1000 1075 / 1075 Catheter Other: Date of Last Bowel Movement 05/30/18 05/30/18 # Bowel Movements 0 1 Narrative: intubated, sedation recently turned off not opening eyes not following commands moving all four extremities pupils equal reactive previous bolt site is clean and dry with steri-strips - Urinary Catheter Management Indwelling Temp Sensing Catheter Cath placed during this visit: yes Reason for continuing: Hourly intake/output Insertion date: 05/25/18 Insertion time: 14:00 Assessment and Plan - Plan 23 y/o female with TBI cont neuro checks sedation and vent weaning per trauma critical care
[2018-05-30] MEDS: Pantoprazole Inj 40 MG Vial IV.PUSH SCH (11:32)
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
[2018-05-30] MEDS: Vancomycin Inj 1,000 MG in Sodium Chlor 0.9% Inj 250 ML IV.SIG SCH ×2 (13:24→20:40)
[2018-05-30 16:07] LABS: Anion Gap 8 meq/L (5-15); Blood Urea Nitrogen 5 mg/dL (7-18); Calcium 7.6 mg/dL (8.5-10.1); Carbon Dioxide 27.1 meq/L (21.0-32.0); Chloride 109 meq/L (98-107); Glomerular Filtration Rate Greater Than 89 mL/min (>89); Glucose,Random 106 mg/dL (74-106); Potassium 3.7 meq/L (3.5-5.1)
[2018-05-30 16:12] LABS: Sodium 144 meq/L (136-145)
--- NOTE | 2018-05-30 20:23 | MG ---
cc: Jason Gomez MD, PhD TEST NUMBER: [id number] TECHNIQUE: A 17-channel EEG. DESCRIPTION: The background rhythm reveals generalized slowing in the delta frequency at 3-4 Hz. There are no lateralizing features. There are no epileptiform discharges present. Photic stimulation does not elicit a driving response. Hyperventilation was not done. INTERPRETATION: Abnormal study consistent with a severe encephalopathy. Jason Gomez MD, PhD YUDELKA/staci , 07:34 PM , 07:38 PM
[2018-05-31] MEDS: Oral Hygiene Kit OROPHARYNG SCH ×4 (00:45→18:10)
[2018-05-31] MEDS: Artificial Tears Opth Drops 15 ML Bottle EACH EYE SCH ×6 (00:45→18:10)
[2018-05-31] MEDS: Dexmedetomidine Inj 200 MCG in Sodium Chlor 0.9% Inj 48 ML IV.CONT PRN ×4 (01:20→20:36)
[2018-05-31 03:47] LABS: Baso % (Auto) 0.2 % (0.0-2.0); Eos # (Auto) 0.1 th/mm3 (0.0-0.4); Eos % (Auto) 1.3 % (0.0-4.0); Hematocrit 25.4 % (35.0-46.0); Lymph # (Auto) 0.9 th/mm3 (1.0-4.8); Lymph % (Auto) 9.6 % (9.0-44.0); Mean Corpuscular HGB Conc 35.6 % (32.0-36.0); Mean Corpuscular Hemoglobin 27.9 pg (27.0-34.0); Mean Corpuscular Volume 78.3 fL (80.0-100.0); Mean Platelet Volume 7.4 fL (7.0-11.0); Mono % (Auto) 11.1 % (0.0-8.0); Neut # (Auto) 6.9 th/mm3 (1.8-7.7); Neut % (Auto) 77.8 % (16.0-70.0); Platelet Count 209 th/mm3 (150-450); Red Blood Count 3.24 mil/mm3 (4.00-5.30); Red Cell Distribution Width 13.2 % (11.6-17.2); White Blood Count 8.9 th/mm3 (4.0-11.0)
[2018-05-31 04:06] LABS: Anion Gap 9 meq/L (5-15); Blood Urea Nitrogen 8 mg/dL (7-18); Calcium 8.1 mg/dL (8.5-10.1); Carbon Dioxide 26.9 meq/L (21.0-32.0); Chloride 109 meq/L (98-107); Glomerular Filtration Rate Greater Than 89 mL/min (>89); Glucose,Random 110 mg/dL (74-106); Potassium 3.5 meq/L (3.5-5.1); Sodium 145 meq/L (136-145)
[2018-05-31] MEDS ORDERED: Pharmacy Ordered Lab Info OTHER ONE (04:45)
[2018-05-31 05:50] LABS: ABG Base Excess 3.4 mmol/L (-2-2); ABG PCO2 38 mmHg (38-42); ABG PO2 177 mmHg (61-120)
[2018-05-31] MEDS: Levothyroxine 112 MCG Tablet PO SCH (05:57)
[2018-05-31] MEDS: Vancomycin Inj 1,000 MG in Sodium Chlor 0.9% Inj 250 ML IV.SIG SCH (07:07)
[2018-05-31] MEDS: Chlorhexidine 0.12% Oral Kit 15 ML UDC OROPHARYNG SCH ×2 (07:58→20:35)
[2018-05-31] MEDS: Senna/Docusate Sodium 8.6/50 MG Tablet PO SCH (08:00)
[2018-05-31] MEDS: Calcium/Vitamin D 250/125 MG Tablet PO SCH ×3 (08:00→18:10)
[2018-05-31] MEDS: Enoxaparin Inj 40 MG/0.4 ML Syringe SQ SCH (08:00)
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
[2018-05-31] MEDS: Pantoprazole Inj 40 MG Vial IV.PUSH SCH (11:58)
[2018-05-31] MEDS ORDERED: Vancomycin Inj 1,500 MG in Sodium Chlor 0.9% Inj 500 ML IV.SIG SCH (13:00)
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
[2018-06-01 04:03] LABS: Baso % (Auto) 0.2 % (0.0-2.0); Eos # (Auto) 0.1 th/mm3 (0.0-0.4); Eos % (Auto) 1.5 % (0.0-4.0); Hematocrit 25.5 % (35.0-46.0); Hemoglobin 8.9 gm/dL (11.6-15.3); Lymph # (Auto) 1.1 th/mm3 (1.0-4.8); Lymph % (Auto) 12.4 % (9.0-44.0); Mean Corpuscular HGB Conc 34.7 % (32.0-36.0); Mean Corpuscular Volume 77.9 fL (80.0-100.0); Mean Platelet Volume 7.4 fL (7.0-11.0); Mono % (Auto) 11.5 % (0.0-8.0); Neut # (Auto) 6.8 th/mm3 (1.8-7.7); Neut % (Auto) 74.4 % (16.0-70.0); Platelet Count 235 th/mm3 (150-450); Red Blood Count 3.28 mil/mm3 (4.00-5.30); Red Cell Distribution Width 12.8 % (11.6-17.2); White Blood Count 9.1 th/mm3 (4.0-11.0)
--- NOTE | 2018-06-01 05:11 | XR ---
EXAM DATE: 06/01/2018 5:04 AM EST AGE/SEX: 23 years / Female INDICATIONS: Shortness of breath, possible pulmonary disease. CLINICAL DATA: This is the patient's subsequent encounter. Patient reports that signs and symptoms h ave been present for 4 - 6 days and indicates a pain score of Nonresponsive. MEDICAL/SURGICAL HISTORY: Hypothyroidism. . ORIF left humerus COMPARISON: [facility], CHEST 1V SINGLE AP, 05/30/2018. . FINDINGS: Single AP view the chest. Endotracheal tube and nasogastric tube remain in place. Persistent bilatera l perihilar pulmonary opacity suggesting pulmonary edema. No significant interval change. No evidence of pleural effusion or pneumothorax. CONCLUSION: No significant interval change with persistent prominent bilateral perihilar pulmonary parenchymal op acity likely representing pulmonary edema. Electronically signed by: Jah Cruz MD 06/01/2018 5:10 AM EST
[2018-06-01 06:12] LABS: ABG Base Excess 1.9 mmol/L (-2-2); ABG PCO2 36 mmHg (38-42); ABG PO2 182 mmHg (61-120)
[2018-06-01] MEDS: Artificial Tears Opth Drops 15 ML Bottle EACH EYE SCH ×5 (06:30→18:19)
[2018-06-01] MEDS: Senna/Docusate Sodium 8.6/50 MG Tablet PO SCH ×2 (06:30→09:07)
[2018-06-01] MEDS: Dexmedetomidine Inj 200 MCG in Sodium Chlor 0.9% Inj 48 ML IV.CONT PRN (06:30)
[2018-06-01] MEDS: Oral Hygiene Kit OROPHARYNG SCH ×3 (06:30→15:42)
[2018-06-01] MEDS: Levothyroxine 112 MCG Tablet PO SCH (06:31)
--- NOTE | 2018-06-01 07:39 | P.PNOP ---
Subjective Interval history: POD 2 s/p ORIF left humerus doing well. no changes Physical Exam Vital signs: Vital Signs 05/31/18 08:00 05/31/18 09:00 05/31/18 10:00 Temperature 100.0 F H 99.5 F 99.0 F Pulse Rate 74 68 69 Respiratory Rate 94 H 99 H 101 H Blood Pressure 158/76 H 155/70 H 127/59 L Pulse Oximetry 99 99 99 05/31/18 10:17 05/31/18 10:20 05/31/18 10:27 Temperature 99.3 F 99.5 F Pulse Rate 83 79 78 Respiratory Rate 70 H 77 H Blood Pressure 117/58 L 110/60 111/56 L Pulse Oximetry 99 99 99 05/31/18 11:00 05/31/18 12:00 05/31/18 12:07 Temperature 99.5 F 99.7 F H Pulse Rate 83 98 H Respiratory Rate 97 H 27 H 19 Blood Pressure 116/62 119/57 L Pulse Oximetry 99 99 97 05/31/18 13:00 05/31/18 14:00 05/31/18 15:00 Temperature 99.9 F H 100.2 F H 98.8 F Pulse Rate 94 H 101 H 103 H Respiratory Rate 27 H 32 H 14 Blood Pressure 132/62 123/60 121/61 Pulse Oximetry 97 100 100 05/31/18 15:59 05/31/18 16:00 05/31/18 17:00 Temperature 100.8 F H 99.5 F Pulse Rate 85 68 Respiratory Rate 14 95 H 15 Blood Pressure 129/65 117/59 L Pulse Oximetry 100 100 100 05/31/18 18:00 05/31/18 19:00 05/31/18 19:09 Temperature 97.7 F 99.5 F Pulse Rate 62 53 L Respiratory Rate 12 12 12 Blood Pressure 119/57 L 120/60 Pulse Oximetry 100 99 100 05/31/18 20:00 05/31/18 21:00 05/31/18 22:00 Temperature 99.0 F 99.1 F Pulse Rate 64 96 H 87 Respiratory Rate 16 12 12 Blood Pressure 123/74 124/67 135/62 Pulse Oximetry 100 95 100 05/31/18 23:00 06/01/18 00:00 06/01/18 00:46 Temperature 99.7 F H 99.7 F H Pulse Rate 49 L 50 L Respiratory Rate 12 12 12 Blood Pressure 148/66 H 128/76 Pulse Oximetry 100 100 100 06/01/18 01:00 06/01/18 02:00 06/01/18 03:00 Temperature 100.0 F H 99.7 F H Pulse Rate 58 L 57 L 46 L Respiratory Rate 12 114 H 12 Blood Pressure 140/67 136/69 148/84 H Pulse Oximetry 100 100 100 06/01/18 04:00 06/01/18 04:18 06/01/18 05:00 Temperature 99.5 F 99.1 F Pulse Rate 53 L 47 L Respiratory Rate 16 12 12 Blood Pressure 148/69 H 148/69 H Pulse Oximetry 100 100 100 06/01/18 06:00 06/01/18 07:00 Temperature Pulse Rate 49 L 44 L Respiratory Rate 16 12 Blood Pressure 134/82 Pulse Oximetry 100 100 Intake & Output 05/31/18 06/01/18 06/01/18 18:59 06:59 18:59 Intake Total 1400 / 1400 130 / 130 105 / 105 Output Total 2900 / 2900 1000 / 1000 Balance -1500 / -1500 -870 / -870 105 / 105 Weight 85.1 kg Intake: IV 1150 / 1150 100 / 100 105 / 105 Precedex Inj 200 MCG In NS Inj 80 / 80 100 / 100 48 ML @ 0.2 MCG/KG/HR 4.49 mls/ hr IV.CONT TITRATE PRN Rx#: [id number] Vancomycin Inj 1,000 MG In NS 250 / 250 Inj 250 ML @ 250 mls/hr IV.SIG Q8H [facility] Rx#:[id number] Vancomycin Inj 1,500 MG In NS 515 / 515 Inj 500 ML @ 250 mls/hr IV.SIG Q8H [facility] Rx#:[id number] Rocephin Inj 2,000 MG In NS Inj 100 / 100 100 ML @ 200 mls/hr IV.SIG Q24H [facility] Rx#:[id number] fentaNYL 10 mcg/mL Premix Drip 100 / 100 2,500 mcg In 250 ml @ 50 MCG/HR 5 mls/hr IV.SIG TITRATE PRN Rx #:[id number] Keppra Inj 500 MG In NS Inj 100 105 / 105 105 / 105 ML @ 400 mls/hr IV.SIG Q12H [facility] Rx#:[id number] Tube Irrigant 250 / 250 Water Bolus Amount 30 / 30 Output: Urine 1000 / 1000 Urine Amount (Catheter) 2900 / 2900 Indwelling Temp Sensing 2900 / 2900 Catheter Other: Date of Last Bowel Movement 05/30/18 05/30/18 # Bowel Movements 0 Narrative: LUE: dressing claen and dry. intact. in restraints - Urinary Catheter Management Indwelling Temp Sensing Catheter Cath placed during this visit: yes Reason for continuing: Hourly intake/output Insertion date: 05/25/18 Insertion time: 14:00 Results - Labs CBC & Chem 7: 06/01/18 03:55 05/31/18 03:30 Laboratory Results - last 24 hr 06/01/18 06/01/18 03:55 06:03 WBC 9.1 RBC 3.28 L Hgb 8.9 L Hct 25.5 L MCV 77.9 L MCH 27.0 MCHC 34.7 RDW 12.8 Plt Count 235 MPV 7.4 Neut % (Auto) 74.4 H Lymph % (Auto) 12.4 [place] % (Auto) 11.5 H Eos % (Auto) 1.5 Baso % (Auto) 0.2 Neut # (Auto) 6.8 Lymph # (Auto) 1.1 [place] # (Auto) 1.0 H Eos # (Auto) 0.1 Baso # (Auto) 0.0 WBC Differential . Differential Comment Auto diff final Puncture Site Left radial Patient Temperature 98.6 O2 Saturation 98 ABG pH 7.46 H ABG pCO2 36 L ABG pO2 182 H ABG HCO3 25 ABG O2 Content 12.7 ABG Base Excess 1.9 ABG Methemoglobin 1.0 Fredy Test Present Hemoglobin 9.0 L Carboxyhemoglobin 0.8 O2 Delivery Device Ventilator Vent Setting Prvc/ac 12 vt 500 Inspired O2 40 Critical Value No Microbiology 05/27/18 20:05 Blood - Peripheral Aerobic Blood Culture - Preliminary No growth in 4 days 05/27/18 20:05 Blood - Peripheral Anaerobic Blood Culture - Preliminary No growth in 4 days 05/27/18 19:10 Blood - Peripheral Aerobic Blood Culture - Preliminary No growth in 4 days 05/27/18 19:10 Blood - Peripheral Anaerobic Blood Culture - Preliminary No growth in 4 days - Imaging Impressions Chest X-Ray 06/01/18 06:00 CONCLUSION: No significant interval change with persistent prominent bilateral perihilar pulmonary parenchymal opacity likely representing pulmonary edema. Assessment and Plan - Assessment and Plan 1) Left Humerus Fx s/p ORIF - POD 2 -NWB -daily dressing changes -ROm of elbow -ortho surgeries complete -f/u with [facility] or [facility]ABS in 2 weeks
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
[2018-06-01] MEDS: Chlorhexidine 0.12% Oral Kit 15 ML UDC OROPHARYNG SCH (09:05)
[2018-06-01] MEDS: Calcium/Vitamin D 250/125 MG Tablet PO SCH ×3 (09:06→18:19)
[2018-06-01] MEDS: Enoxaparin Inj 40 MG/0.4 ML Syringe SQ SCH (09:07)
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
[2018-06-01] MEDS: Pantoprazole Inj 40 MG Vial IV.PUSH SCH (11:34)
[2018-06-01] MEDS ORDERED: Pharmacy Ordered Lab Info OTHER ONE (12:45)
[2018-06-01 14:12] LABS: Anion Gap 11 meq/L (5-15); Blood Urea Nitrogen 10 mg/dL (7-18); Calcium 8.6 mg/dL (8.5-10.1); Carbon Dioxide 27.8 meq/L (21.0-32.0); Chloride 105 meq/L (98-107); Glomerular Filtration Rate Greater Than 89 mL/min (>89); Glucose,Random 92 mg/dL (74-106); Potassium 3.1 meq/L (3.5-5.1); Sodium 144 meq/L (136-145)
--- NOTE | 2018-06-01 15:14 | P.PNNS ---
Subjective Interval history: pt seen this morning during rounds, sister at bedside report pt has opened eyes , gave thumbs up and nods. pt up most of the night currently very lethargic. Physical Exam Vital signs: Vital Signs 05/31/18 15:59 05/31/18 16:00 05/31/18 17:00 Temperature 100.8 F H 99.5 F Pulse Rate 85 68 Respiratory Rate 14 95 H 15 Blood Pressure 129/65 117/59 L Pulse Oximetry 100 100 100 05/31/18 18:00 05/31/18 19:00 05/31/18 19:09 Temperature 97.7 F 99.5 F Pulse Rate 62 53 L Respiratory Rate 12 12 12 Blood Pressure 119/57 L 120/60 Pulse Oximetry 100 99 100 05/31/18 20:00 05/31/18 21:00 05/31/18 22:00 Temperature 99.0 F 99.1 F Pulse Rate 64 96 H 87 Respiratory Rate 16 12 12 Blood Pressure 123/74 124/67 135/62 Pulse Oximetry 100 95 100 05/31/18 23:00 06/01/18 00:00 06/01/18 00:46 Temperature 99.7 F H 99.7 F H Pulse Rate 49 L 50 L Respiratory Rate 12 12 12 Blood Pressure 148/66 H 128/76 Pulse Oximetry 100 100 100 06/01/18 01:00 06/01/18 02:00 06/01/18 03:00 Temperature 100.0 F H 99.7 F H Pulse Rate 58 L 57 L 46 L Respiratory Rate 12 114 H 12 Blood Pressure 140/67 136/69 148/84 H Pulse Oximetry 100 100 100 06/01/18 04:00 06/01/18 04:18 06/01/18 05:00 Temperature 99.5 F 99.1 F Pulse Rate 53 L 47 L Respiratory Rate 16 12 12 Blood Pressure 148/69 H 148/69 H Pulse Oximetry 100 100 100 06/01/18 06:00 06/01/18 07:00 06/01/18 08:00 Temperature 99.1 F Pulse Rate 49 L 44 L 48 L Respiratory Rate 16 12 12 Blood Pressure 134/82 138/70 Pulse Oximetry 100 100 100 06/01/18 08:52 06/01/18 09:00 06/01/18 09:10 Temperature Pulse Rate 46 L 58 L Respiratory Rate 13 13 23 Blood Pressure 154/68 H Pulse Oximetry 99 99 100 06/01/18 09:34 06/01/18 10:00 06/01/18 11:00 Temperature Pulse Rate 64 48 L 48 L Respiratory Rate 22 14 27 H Blood Pressure 151/83 H 140/76 Pulse Oximetry 99 99 93 L 06/01/18 11:22 06/01/18 11:39 06/01/18 12:00 Temperature 98.8 F Pulse Rate 52 L 48 L Respiratory Rate 18 12 18 Blood Pressure 134/67 137/66 Pulse Oximetry 100 100 100 06/01/18 13:00 06/01/18 14:00 Temperature Pulse Rate 55 L 53 L Respiratory Rate 18 13 Blood Pressure 136/73 137/75 Pulse Oximetry 100 96 Intake & Output 05/31/18 06/01/18 06/01/18 18:59 06:59 18:59 Intake Total 1400 / 1400 130 / 130 105 / 105 Output Total 2900 / 2900 1000 / 1000 Balance -1500 / -1500 -870 / -870 105 / 105 Weight 85.1 kg Intake: IV 1150 / 1150 100 / 100 105 / 105 Precedex Inj 200 MCG In NS Inj 80 / 80 100 / 100 48 ML @ 0.2 MCG/KG/HR 4.49 mls/ hr IV.CONT TITRATE PRN Rx#: [id number] Vancomycin Inj 1,000 MG In NS 250 / 250 Inj 250 ML @ 250 mls/hr IV.SIG Q8H [facility] Rx#:[id number] Vancomycin Inj 1,500 MG In NS 515 / 515 Inj 500 ML @ 250 mls/hr IV.SIG Q8H [facility] Rx#:[id number] Rocephin Inj 2,000 MG In NS Inj 100 / 100 100 ML @ 200 mls/hr IV.SIG Q24H [facility] Rx#:[id number] fentaNYL 10 mcg/mL Premix Drip 100 / 100 2,500 mcg In 250 ml @ 50 MCG/HR 5 mls/hr IV.SIG TITRATE PRN Rx #:[id number] Keppra Inj 500 MG In NS Inj 100 105 / 105 105 / 105 ML @ 400 mls/hr IV.SIG Q12H [facility] Rx#:[id number] Tube Irrigant 250 / 250 Water Bolus Amount 30 / 30 Output: Urine 1000 / 1000 Urine Amount (Catheter) 2900 / 2900 Indwelling Temp Sensing 2900 / 2900 Catheter Other: Date of Last Bowel Movement 05/30/18 05/30/18 05/30/18 # Bowel Movements 0 Narrative: intubated, no sedatives pupils equal reactive lethargic, not following commands intermittent movements - Urinary Catheter Management Indwelling Temp Sensing Catheter Cath placed during this visit: yes Reason for continuing: Hourly intake/output Insertion date: 05/25/18 Insertion time: 14:00 Assessment and Plan - Plan 23 y/o female with TBI cont neuro checks per sister, exam improving cont critical care per trauma
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
--- NOTE | 2018-06-02 03:59 | XR ---
EXAM DATE: 06/02/2018 3:37 AM EST AGE/SEX: 23 years / Female INDICATIONS: Respiratory disease. CLINICAL DATA: This is the patient's subsequent encounter. Patient reports that signs and symptoms h ave been present for 1 week and indicates a pain score of Nonresponsive. MEDICAL/SURGICAL HISTORY: . Hypothyroidism. . ORIF left humerus [place] [facility] [place] 1[place], [place]/2018. [facility] [place]ST [place]AST, 05/[place]/2018. . FINDINGS: The patient is intubated with the tip of ET tube 2 cm from the demetrice. The NG tube is directed into t he stomach. The heart size is normal. This increased density at the bases bilaterally. The right base process has improved. The left base process is unchanged. There is prominence of the left hilar veronica on. This area appeared normal on the recent CT examination. CONCLUSION: Bibasilar areas of consolidation or atelectasis with some improvement on the right side. Electronically signed by: Tim Orellana MD Board Certified Radiologist 06/02/2018 3:58 AM EST
[2018-06-02 04:19] LABS: Baso % (Auto) 0.2 % (0.0-2.0); Eos # (Auto) 0.2 th/mm3 (0.0-0.4); Eos % (Auto) 1.5 % (0.0-4.0); Hematocrit 27.5 % (35.0-46.0); Hemoglobin 9.4 gm/dL (11.6-15.3); Lymph # (Auto) 1.5 th/mm3 (1.0-4.8); Lymph % (Auto) 12.8 % (9.0-44.0); Mean Corpuscular HGB Conc 34.3 % (32.0-36.0); Mean Corpuscular Hemoglobin 26.9 pg (27.0-34.0); Mean Corpuscular Volume 78.6 fL (80.0-100.0); Mean Platelet Volume 7.5 fL (7.0-11.0); Mono # (Auto) 1.1 th/mm3 (0.0-0.9); Mono % (Auto) 9.4 % (0.0-8.0); Neut # (Auto) 8.6 th/mm3 (1.8-7.7); Neut % (Auto) 76.1 % (16.0-70.0); Platelet Count 327 th/mm3 (150-450); White Blood Count 11.3 th/mm3 (4.0-11.0)
[2018-06-02 04:40] LABS: Albumin 2.2 g/dL (3.4-5.0); Anion Gap 11 meq/L (5-15); Aspartate Aminotransferase 24 U/L (15-37); Blood Urea Nitrogen 11 mg/dL (7-18); Calcium 8.2 mg/dL (8.5-10.1); Carbon Dioxide 27.5 meq/L (21.0-32.0); Chloride 105 meq/L (98-107); Glomerular Filtration Rate Greater Than 89 mL/min (>89); Glucose,Random 83 mg/dL (74-106); Sodium 143 meq/L (136-145)
[2018-06-02 04:41] LABS: Alanine Aminotransferase 41 U/L (10-53)
[2018-06-02 04:43] LABS: Alkaline Phosphatase 99 U/L (45-117); Total Protein 6.2 g/dL (6.4-8.2)
[2018-06-02 05:38] LABS: ABG Base Excess 3.5 mmol/L (-2-2); ABG PCO2 37 mmHg (38-42); ABG PO2 78 mmHg (61-120)
[2018-06-02] MEDS: Chlorhexidine 0.12% Oral Kit 15 ML UDC OROPHARYNG SCH ×3 (06:08→19:45)
[2018-06-02] MEDS: Artificial Tears Opth Drops 15 ML Bottle EACH EYE SCH ×6 (06:09→23:07)
[2018-06-02] MEDS: Senna/Docusate Sodium 8.6/50 MG Tablet PO SCH ×3 (06:09→20:04)
[2018-06-02] MEDS: Oral Hygiene Kit OROPHARYNG SCH ×4 (06:09→23:08)
[2018-06-02] MEDS: Levothyroxine 112 MCG Tablet PO SCH (06:10)
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
[2018-06-02] MEDS: Enoxaparin Inj 40 MG/0.4 ML Syringe SQ SCH (08:57)
[2018-06-02] MEDS: Calcium/Vitamin D 250/125 MG Tablet PO SCH ×3 (08:57→19:50)
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
[2018-06-02] MEDS: Pantoprazole Inj 40 MG Vial IV.PUSH SCH (12:15)
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
[2018-06-02] MEDS: Amantadine Liq 100 MG/10 ML UDC PO SCH (20:04)
[2018-06-03] MEDS: Artificial Tears Opth Drops 15 ML Bottle EACH EYE SCH ×6 (03:06→22:20)
[2018-06-03] MEDS: Oral Hygiene Kit OROPHARYNG SCH ×3 (03:07→17:00)
[2018-06-03 04:38] LABS: Baso % (Auto) 0.1 % (0.0-2.0); Eos % (Auto) 0.2 % (0.0-4.0); Hematocrit 29.2 % (35.0-46.0); Hemoglobin 9.9 gm/dL (11.6-15.3); Lymph # (Auto) 1.7 th/mm3 (1.0-4.8); Lymph % (Auto) 10.3 % (9.0-44.0); Mean Corpuscular HGB Conc 33.9 % (32.0-36.0); Mean Corpuscular Hemoglobin 26.5 pg (27.0-34.0); Mean Corpuscular Volume 78.3 fL (80.0-100.0); Mean Platelet Volume 7.1 fL (7.0-11.0); Mono % (Auto) 6.2 % (0.0-8.0); Neut % (Auto) 83.2 % (16.0-70.0); Platelet Count 396 th/mm3 (150-450); Red Blood Count 3.73 mil/mm3 (4.00-5.30); Red Cell Distribution Width 12.6 % (11.6-17.2); White Blood Count 16.8 th/mm3 (4.0-11.0)
[2018-06-03 04:52] LABS: Albumin 2.2 g/dL (3.4-5.0); Anion Gap 11 meq/L (5-15); Aspartate Aminotransferase 25 U/L (15-37); Blood Urea Nitrogen 7 mg/dL (7-18); Calcium 7.6 mg/dL (8.5-10.1); Carbon Dioxide 26.3 meq/L (21.0-32.0); Chloride 105 meq/L (98-107); Glomerular Filtration Rate Greater Than 89 mL/min (>89); Glucose,Random 85 mg/dL (74-106); Potassium 3.1 meq/L (3.5-5.1); Sodium 142 meq/L (136-145)
[2018-06-03 04:56] LABS: Alanine Aminotransferase 35 U/L (10-53); Alkaline Phosphatase 100 U/L (45-117); Total Protein 6.2 g/dL (6.4-8.2)
[2018-06-03] MEDS: Potassium Chlor 20 mEq Premix 20 MEQ/100 ML PIGGYBACK IV.SIG PRN ×4 (05:16→21:56)
[2018-06-03] MEDS: Levothyroxine 112 MCG Tablet PO SCH (05:16)
--- NOTE | 2018-06-03 05:17 | XR ---
EXAM DATE: 06/03/2018 5:13 AM EST AGE/SEX: 23 years / Female INDICATIONS: Respiratory disease. CLINICAL DATA: This is the patient's subsequent encounter. Patient reports that signs and symptoms h ave been present for 1 week and indicates a pain score of Nonresponsive. MEDICAL/SURGICAL HISTORY: . Hypothyroidism. . ORIF left humerus COMPARISON: [facility], CHEST 1V SINGLE AP, 06/02/2018. . FINDINGS: The ET tube and NG tube are well placed. The heart size is normal. There are areas of increased densi ty seen at the bases bilaterally. There is some prominence of the left hilar region. CONCLUSION: Bibasilar and left perihilar areas of consolidation or atelectasis. Electronically signed by: Tim Orellana MD Board Certified Radiologist 06/03/2018 5:16 AM EST
[2018-06-03 05:30] LABS: ABG Base Excess 3.1 mmol/L (-2-2); ABG PCO2 35 mmHg (38-42); ABG PO2 89 mmHg (61-120)
[2018-06-03] MEDS: Enoxaparin Inj 40 MG/0.4 ML Syringe SQ SCH (08:07)
[2018-06-03] MEDS: Amantadine Liq 100 MG/10 ML UDC PO SCH ×2 (08:07→12:12)
[2018-06-03] MEDS: Calcium/Vitamin D 250/125 MG Tablet PO SCH ×3 (08:07→18:53)
[2018-06-03] MEDS: Chlorhexidine 0.12% Oral Kit 15 ML UDC OROPHARYNG SCH ×2 (08:08→19:17)
[2018-06-03] MEDS: Senna/Docusate Sodium 8.6/50 MG Tablet PO SCH ×2 (08:09→20:15)
[2018-06-03] MEDS: Pantoprazole Inj 40 MG Vial IV.PUSH SCH (12:12)
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
[2018-06-04] MEDS: Oral Hygiene Kit OROPHARYNG SCH ×4 (00:03→15:18)
[2018-06-04] MEDS: Artificial Tears Opth Drops 15 ML Bottle EACH EYE SCH ×5 (02:58→18:40)
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
[2018-06-04 05:21] LABS: Baso # (Auto) 0.1 th/mm3 (0.0-0.2); Baso % (Auto) 0.5 % (0.0-2.0); Eos # (Auto) 0.3 th/mm3 (0.0-0.4); Eos % (Auto) 1.8 % (0.0-4.0); Hematocrit 33.2 % (35.0-46.0); Hemoglobin 11.5 gm/dL (11.6-15.3); Lymph # (Auto) 2.3 th/mm3 (1.0-4.8); Lymph % (Auto) 16.1 % (9.0-44.0); Mean Corpuscular HGB Conc 34.6 % (32.0-36.0); Mean Corpuscular Volume 77.9 fL (80.0-100.0); Mean Platelet Volume 7.2 fL (7.0-11.0); Mono % (Auto) 6.9 % (0.0-8.0); Neut # (Auto) 10.8 th/mm3 (1.8-7.7); Neut % (Auto) 74.7 % (16.0-70.0); Platelet Count 449 th/mm3 (150-450); Red Blood Count 4.26 mil/mm3 (4.00-5.30); White Blood Count 14.5 th/mm3 (4.0-11.0)
[2018-06-04 05:32] LABS: Alanine Aminotransferase 31 U/L (10-53); Albumin 2.3 g/dL (3.4-5.0); Anion Gap 11 meq/L (5-15); Aspartate Aminotransferase 19 U/L (15-37); Blood Urea Nitrogen 6 mg/dL (7-18); Calcium 7.7 mg/dL (8.5-10.1); Carbon Dioxide 25.3 meq/L (21.0-32.0); Chloride 107 meq/L (98-107); Glomerular Filtration Rate Greater Than 89 mL/min (>89); Glucose,Random 69 mg/dL (74-106); Potassium 3.4 meq/L (3.5-5.1)
[2018-06-04 05:34] LABS: Alkaline Phosphatase 105 U/L (45-117); Sodium 143 meq/L (136-145); Total Protein 6.4 g/dL (6.4-8.2)
[2018-06-04] MEDS: Potassium Chlor 20 mEq Premix 20 MEQ/100 ML PIGGYBACK IV.SIG PRN ×3 (05:44→10:57)
[2018-06-04] MEDS: Levothyroxine 112 MCG Tablet PO SCH (05:44)
[2018-06-04 06:01] LABS: Eosinophils 2 % (0-4); Lymphocytes 14 % (9-44); Monocytes 1 % (0-8); Myelocytes 2 % (0-0)
[2018-06-04 06:02] LABS: Platelet Morphology Normal (Normal)
[2018-06-04] MEDS: Amantadine Liq 100 MG/10 ML UDC PO SCH ×2 (06:08→12:46)
[2018-06-04] MEDS: Chlorhexidine 0.12% Oral Kit 15 ML UDC OROPHARYNG SCH ×2 (07:12→19:37)
[2018-06-04] MEDS: Calcium/Vitamin D 250/125 MG Tablet PO SCH ×3 (08:24→18:39)
[2018-06-04] MEDS: Senna/Docusate Sodium 8.6/50 MG Tablet PO SCH ×2 (08:24→21:12)
[2018-06-04] MEDS: Enoxaparin Inj 40 MG/0.4 ML Syringe SQ SCH (08:24)
--- NOTE | 2018-06-04 12:02 | P.PNNS ---
Subjective Interval history: The patient has been extubated. She is drowsy but easily arousable. She opens her eyes but has right ptosis. She responds verbally. She appears confused. She does not appear to have any complaints. Physical Exam Vital signs: Vital Signs 06/03/18 11:57 06/03/18 12:00 06/03/18 13:00 Temperature Pulse Rate 73 55 L Respiratory Rate 24 30 H 21 Blood Pressure 168/81 H 159/91 H Pulse Oximetry 98 100 100 06/03/18 14:00 06/03/18 14:14 06/03/18 15:00 Temperature Pulse Rate 65 62 72 Respiratory Rate 26 H 33 H 27 H Blood Pressure 172/90 H 153/89 H 169/89 H Pulse Oximetry 98 97 98 06/03/18 16:00 06/03/18 17:00 06/03/18 18:00 Temperature 98.1 F Pulse Rate 78 69 80 Respiratory Rate 32 H 31 H 31 H Blood Pressure 169/79 H 162/92 H 158/93 H Pulse Oximetry 97 100 100 06/03/18 19:00 06/03/18 20:00 06/03/18 20:13 Temperature 98.4 F Pulse Rate 74 81 Respiratory Rate 24 23 Blood Pressure 154/89 H 141/85 H Pulse Oximetry 100 100 100 06/03/18 21:00 06/03/18 22:00 06/03/18 23:00 Temperature Pulse Rate 69 61 59 L Respiratory Rate 24 21 114 H Blood Pressure 143/78 H 155/92 H 158/118 H Pulse Oximetry 98 100 100 06/03/18 23:03 06/04/18 00:00 06/04/18 00:39 Temperature 98.4 F Pulse Rate 71 62 Respiratory Rate 113 H 21 Blood Pressure 140/81 150/90 H Pulse Oximetry 100 100 100 06/04/18 01:00 06/04/18 02:00 06/04/18 03:00 Temperature Pulse Rate 65 66 63 Respiratory Rate 19 20 21 Blood Pressure 137/80 142/83 H 134/78 Pulse Oximetry 99 98 100 06/04/18 04:00 06/04/18 05:00 06/04/18 06:00 Temperature 99.4 F Pulse Rate 62 63 58 L Respiratory Rate 21 21 22 Blood Pressure 138/70 141/78 H 157/94 H Pulse Oximetry 97 99 98 06/04/18 07:00 06/04/18 07:16 06/04/18 07:55 Temperature Pulse Rate 73 59 L Respiratory Rate 22 8 L Blood Pressure 160/82 H Pulse Oximetry 100 100 100 06/04/18 08:00 06/04/18 09:00 06/04/18 10:00 Temperature 98.8 F Pulse Rate 63 59 L 57 L Respiratory Rate 28 H 27 H 28 H Blood Pressure 160/82 H 158/75 H 153/74 H Pulse Oximetry 100 96 97 Intake & Output 06/03/18 06/04/18 06/04/18 18:59 06:59 18:59 Intake Total 405 / 405 510 / 510 200 / 200 Output Total 1800 / 1800 1350 / 1350 Balance -1395 / -1395 -840 / -840 200 / 200 Weight 77.1 kg Intake: IV 405 / 405 510 / 510 200 / 200 KCl 20 mEq Premix Inj 20 meq In 200 / 200 200 / 200 200 / 200 100 ml @ 50 mls/hr IV.SIG Q2H PRN Rx#:[id number] Rocephin Inj 2,000 MG In NS Inj 100 / 100 100 / 100 100 ML @ 200 mls/hr IV.SIG Q24H [facility] Rx#:[id number] Keppra Inj 500 MG In NS Inj 100 105 / 105 210 / 210 ML @ 400 mls/hr IV.SIG Q12H [facility] Rx#:[id number] Output: Urine Amount (Catheter) 1800 / 1800 1350 / 1350 Indwelling Urethral Catheter 1800 / 1800 1350 / 1350 Other: Date of Last Bowel Movement 06/03/18 06/03/18 06/03/18 - Routine Neurological Exam The patient is lying in bed. Her sister sits next to her. Mental status testing finds her to be somewhat drowsy but easily arousable. She is oriented x1. Her speech is fluent. She is confused. She has right ptosis but her pupils are equally round and reactive to light. Her gaze is conjugate. Corneal reflexes are present. Gag reflex is present. Best motor response finds her to move all 4 extremities spontaneously as well as to command. 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 I discussed this with the trauma service and they will order the study. Neurosurgery will follow
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
[2018-06-04] MEDS: Pantoprazole Inj 40 MG Vial IV.PUSH SCH (12:48)
[2018-06-05] MEDS: Oral Hygiene Kit OROPHARYNG SCH ×4 (00:05→15:46)
[2018-06-05] MEDS: Artificial Tears Opth Drops 15 ML Bottle EACH EYE SCH ×7 (00:05→22:13)
[2018-06-05 04:12] LABS: Baso % (Auto) 0.3 % (0.0-2.0); Eos # (Auto) 0.3 th/mm3 (0.0-0.4); Eos % (Auto) 2.3 % (0.0-4.0); Hemoglobin 11.6 gm/dL (11.6-15.3); Lymph # (Auto) 2.5 th/mm3 (1.0-4.8); Lymph % (Auto) 22.1 % (9.0-44.0); Mean Corpuscular HGB Conc 34.2 % (32.0-36.0); Mean Corpuscular Hemoglobin 26.8 pg (27.0-34.0); Mean Corpuscular Volume 78.4 fL (80.0-100.0); Mean Platelet Volume 6.9 fL (7.0-11.0); Mono # (Auto) 0.7 th/mm3 (0.0-0.9); Mono % (Auto) 6.2 % (0.0-8.0); Neut # (Auto) 7.8 th/mm3 (1.8-7.7); Neut % (Auto) 69.1 % (16.0-70.0); Platelet Count 492 th/mm3 (150-450); Red Blood Count 4.34 mil/mm3 (4.00-5.30); Red Cell Distribution Width 13.1 % (11.6-17.2); White Blood Count 11.4 th/mm3 (4.0-11.0)
[2018-06-05 04:37] LABS: Albumin 2.5 g/dL (3.4-5.0); Anion Gap 8 meq/L (5-15); Aspartate Aminotransferase 16 U/L (15-37); Blood Urea Nitrogen 8 mg/dL (7-18); Calcium 8.5 mg/dL (8.5-10.1); Chloride 106 meq/L (98-107); Glomerular Filtration Rate Greater Than 89 mL/min (>89); Glucose,Random 73 mg/dL (74-106); Potassium 3.9 meq/L (3.5-5.1); Sodium 141 meq/L (136-145)
[2018-06-05 04:38] LABS: Alanine Aminotransferase 37 U/L (10-53)
[2018-06-05 04:40] LABS: Alkaline Phosphatase 122 U/L (45-117); Total Protein 6.7 g/dL (6.4-8.2)
[2018-06-05 05:15] LABS: Platelet Morphology Normal (Normal)
[2018-06-05] MEDS: Amantadine Liq 100 MG/10 ML UDC PO SCH ×2 (06:29→12:03)
[2018-06-05] MEDS: Levothyroxine 112 MCG Tablet PO SCH (06:29)
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
[2018-06-05] MEDS: Chlorhexidine 0.12% Oral Kit 15 ML UDC OROPHARYNG SCH ×2 (08:45→19:37)
[2018-06-05] MEDS: Senna/Docusate Sodium 8.6/50 MG Tablet PO SCH ×2 (08:46→21:10)
[2018-06-05] MEDS: Enoxaparin Inj 40 MG/0.4 ML Syringe SQ SCH (09:52)
[2018-06-05] MEDS: Calcium/Vitamin D 250/125 MG Tablet PO SCH ×3 (09:52→19:41)
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
--- NOTE | 2018-06-05 11:37 | P.DIET ---
Nutritional Evaluation Type of nutrition evaluation: follow-up Nutrition consult regarding[facility] Subjective Subjective Comments: Ate 50% of breakfast. Objective - Diagnosis closed head injury - Objective % IBW: 141 (IBW = 135lb) Body Weight Used for Calculations: IBW Energy Needs - Lower Range (kCal/kg): 25 Energy Needs - Upper Range (kCal/kg): 30 Lower Limit kCal/kg (kCals): 1,534 Upper Limit kCal/kg (kCals): 1,841 Lower Limit Protein Factor (Grams per Kg): 1.2 Upper Limit Protein Factor (Grams per Kg): 1.5 Lower Protein Needs (Protein): 74 Upper Protein Needs (Protein): 92 Dietitian Reviewed in Medical Record: Current diet, Curent medications, Intake & Output, Labs, Medical history, Tube feeding Diet Order: Pureed, nectar thickened liquids Speech Therapy Recommendations: Yes Objective Comments: PMH: Avani's disease (chronic lymphocytic thyroiditis) Assessment Assessment: Pt extubated and diet advanced to pureed with nectar thickened liquids. Will send Ensure Enlive bid for added nutrition; each 8 oz serving provides 350 kcals and [address] following. Recommendations: Diet per ST Ensure Enlive, will monitor acceptance RD following Dietitian to Monitor: Lab values, Intake & Output, Diet tolerance, Weight change , PO Intake, Diet advancement, Swallow recommendations, Medical course
[2018-06-05] MEDS: Pantoprazole Inj 40 MG Vial IV.PUSH SCH (12:03)
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
[2018-06-05] MEDS: levoFLOXacin 750 MG Tablet PO SCH (16:17)
[2018-06-06] MEDS: Oral Hygiene Kit OROPHARYNG SCH ×4 (00:19→17:25)
[2018-06-06] MEDS: Artificial Tears Opth Drops 15 ML Bottle EACH EYE SCH ×5 (04:26→21:52)
[2018-06-06 04:32] LABS: Baso # (Auto) 0.1 th/mm3 (0.0-0.2); Baso % (Auto) 0.5 % (0.0-2.0); Eos # (Auto) 0.2 th/mm3 (0.0-0.4); Eos % (Auto) 1.9 % (0.0-4.0); Hematocrit 40.3 % (35.0-46.0); Hemoglobin 13.4 gm/dL (11.6-15.3); Lymph # (Auto) 2.1 th/mm3 (1.0-4.8); Mean Corpuscular HGB Conc 33.2 % (32.0-36.0); Mean Corpuscular Hemoglobin 26.6 pg (27.0-34.0); Mean Corpuscular Volume 80.1 fL (80.0-100.0); Mean Platelet Volume 6.9 fL (7.0-11.0); Mono # (Auto) 0.7 th/mm3 (0.0-0.9); Mono % (Auto) 6.1 % (0.0-8.0); Neut # (Auto) 7.7 th/mm3 (1.8-7.7); Neut % (Auto) 71.5 % (16.0-70.0); Platelet Count 554 th/mm3 (150-450); Red Blood Count 5.03 mil/mm3 (4.00-5.30); Red Cell Distribution Width 13.2 % (11.6-17.2); White Blood Count 10.7 th/mm3 (4.0-11.0)
[2018-06-06 05:01] LABS: Alanine Aminotransferase 37 U/L (10-53); Albumin 2.7 g/dL (3.4-5.0); Anion Gap 8 meq/L (5-15); Aspartate Aminotransferase 17 U/L (15-37); Blood Urea Nitrogen 6 mg/dL (7-18); Calcium 8.5 mg/dL (8.5-10.1); Carbon Dioxide 29.3 meq/L (21.0-32.0); Chloride 105 meq/L (98-107); Glomerular Filtration Rate Greater Than 89 mL/min (>89); Glucose,Random 91 mg/dL (74-106); Potassium 3.9 meq/L (3.5-5.1); Sodium 142 meq/L (136-145)
[2018-06-06 05:04] LABS: Alkaline Phosphatase 169 U/L (45-117); Total Protein 7.5 g/dL (6.4-8.2)
[2018-06-06] MEDS: Amantadine Liq 100 MG/10 ML UDC PO SCH ×2 (06:34→13:09)
[2018-06-06] MEDS: Levothyroxine 112 MCG Tablet PO SCH (06:34)
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
[2018-06-06] MEDS: Calcium/Vitamin D 250/125 MG Tablet PO SCH ×3 (08:59→17:26)
[2018-06-06] MEDS: levoFLOXacin 750 MG Tablet PO SCH (08:59)
[2018-06-06] MEDS: Enoxaparin Inj 40 MG/0.4 ML Syringe SQ SCH (08:59)
[2018-06-06] MEDS: Senna/Docusate Sodium 8.6/50 MG Tablet PO SCH ×2 (08:59→21:51)
[2018-06-06] MEDS: Chlorhexidine 0.12% Oral Kit 15 ML UDC OROPHARYNG SCH ×2 (09:00→20:12)
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
[2018-06-06] MEDS: Pantoprazole Inj 40 MG Vial IV.PUSH SCH (13:08)
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
--- NOTE | 2018-06-06 16:37 | CT ---
EXAM DATE: 06/06/2018 4:31 PM EST AGE/SEX: 23 years / Female INDICATIONS: Ptosis. CLINICAL DATA: This is the patient's subsequent encounter. Patient reports that signs and symptoms h ave been present for 1 day and indicates a pain score of 0/10. MEDICAL/SURGICAL HISTORY: . Bleed . prior ICP RADIATION DOSE: 8.29 CTDI (mGy) [place] [facility] [place] [facility] [place]. . TECHNIQUE: Volumetric scanning was performed using a multi-row detector CT scanner during bolus infu maría elena of 71 ml Omnipaque 350 (iohexol) nonionic water-soluble contrast as a single exam dose. The d sayda was post processed with a variety of visualization algorithms including full volume maximum inten sity projection, multi-planar sliding thin slab reformation, curved planar reformation, and surface r endering techniques. Using automated exposure control and adjustment of the mA and/or kV according t o patient size, radiation dose was kept as low as reasonably achievable to obtain optimal diagnostic quality images. DICOM format image data is available electronically for review and comparison. FINDINGS: There is excellent visualization of the major intracranial arteries out to the second-order branch ve ssels. There is no evidence for aneurysm, vessel truncation or stenosis, and no evidence for vascula r malformation. Patent left posterior communicating artery fills the left posterior cerebral artery. CONCLUSION: 1. Negative CTA Head. . Electronically signed by: Saeed Downing MD Board Certified Radiologist 06/06/2018 4:36 PM EST
[2018-06-07] MEDS: Artificial Tears Opth Drops 15 ML Bottle EACH EYE SCH ×5 (03:15→11:56)
[2018-06-07] MEDS: Oral Hygiene Kit OROPHARYNG SCH ×3 (03:16→11:28)
[2018-06-07] MEDS: Levothyroxine 112 MCG Tablet PO SCH (06:30)
[2018-06-07] MEDS: Amantadine Liq 100 MG/10 ML UDC PO SCH ×2 (06:30→11:56)
[2018-06-07 07:17] LABS: Baso % (Auto) 0.3 % (0.0-2.0); Eos # (Auto) 0.2 th/mm3 (0.0-0.4); Eos % (Auto) 2.4 % (0.0-4.0); Hematocrit 35.9 % (35.0-46.0); Hemoglobin 12.2 gm/dL (11.6-15.3); Lymph # (Auto) 2.3 th/mm3 (1.0-4.8); Lymph % (Auto) 21.9 % (9.0-44.0); Mean Corpuscular HGB Conc 33.9 % (32.0-36.0); Mean Corpuscular Hemoglobin 26.9 pg (27.0-34.0); Mean Corpuscular Volume 79.4 fL (80.0-100.0); Mean Platelet Volume 6.9 fL (7.0-11.0); Mono # (Auto) 0.8 th/mm3 (0.0-0.9); Mono % (Auto) 7.2 % (0.0-8.0); Neut # (Auto) 7.1 th/mm3 (1.8-7.7); Neut % (Auto) 68.2 % (16.0-70.0); Platelet Count 506 th/mm3 (150-450); Red Blood Count 4.52 mil/mm3 (4.00-5.30); Red Cell Distribution Width 13.3 % (11.6-17.2); White Blood Count 10.5 th/mm3 (4.0-11.0)
[2018-06-07 07:44] LABS: Albumin 2.6 g/dL (3.4-5.0); Anion Gap 9 meq/L (5-15); Aspartate Aminotransferase 17 U/L (15-37); Blood Urea Nitrogen 7 mg/dL (7-18); Chloride 106 meq/L (98-107); Glomerular Filtration Rate Greater Than 89 mL/min (>89); Potassium 3.8 meq/L (3.5-5.1); Sodium 142 meq/L (136-145)
[2018-06-07 07:50] LABS: Alanine Aminotransferase 30 U/L (10-53); Alkaline Phosphatase 212 U/L (45-117); Glucose,Random 91 mg/dL (74-106); Total Protein 6.6 g/dL (6.4-8.2)
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
[2018-06-07 08:37] VITALS: BP 90/49; PULSE 65; RESP 20; TEMP 97.6
[2018-06-07] MEDS: Chlorhexidine 0.12% Oral Kit 15 ML UDC OROPHARYNG SCH (08:37)
[2018-06-07] MEDS: Enoxaparin Inj 40 MG/0.4 ML Syringe SQ SCH (09:25)
[2018-06-07] MEDS: Senna/Docusate Sodium 8.6/50 MG Tablet PO SCH (09:25)
[2018-06-07] MEDS: levoFLOXacin 750 MG Tablet PO SCH (09:25)
[2018-06-07] MEDS: Calcium/Vitamin D 250/125 MG Tablet PO SCH ×2 (09:25→12:00)
[2018-06-07 10:36] VITALS: O2SAT 98
[2018-06-07] MEDS: Pantoprazole Inj 40 MG Vial IV.PUSH SCH (11:49)
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
== END 2018-06-07 13:08 ==
LOC: NEPI 10:44 → EDBD 11:23 → NEDA 11:23 → N03 11:38 → N05 06-05 23:48
PROVIDERS: ADMIT Surgery; ATTEND Surgery